=== PATIENT | female | born 1980 | race African-American/Black ===

== ENCOUNTER 2016-12-29 13:47 | Emergency (ER) | payer OTHER ==
[2016-12-29 14:42] LABS: #Eosinphils 0.3 thou/uL (0.0-0.7); #Lymphocytes 1.7 thou/uL (1.20-3.40); #Monocytes 0.3 thou/uL (0.11-0.59); #Neutrophils 4.2 thou/uL (1.40-6.50); %Basophils 0.3 % (0.0-1.0); %Eosinophils 4.3 % (0.0-10.0); %Lymphocytes 26.1 % (21.0-51.0); %Monocytes 5.1 % (0.0-10.0); Hematocrit 39.1 % (36.0-47.0); Mean Platelet Volume 7.5 fL (7.4-10.4); White Blood Cell (WBC) Count 6.6 thou/uL (4.8-10.8)
[2016-12-29 15:07] LABS: ALT (SGPT) 10 U/L (8-55); AST (SGOT) 14 U/L (5-34); Alkaline Phosphatase 72 U/L (40-150); Anion Gap 13 mmol/L (10-20); BUN (Urea Nitrogen) 8 mg/dL (7.0-18.7); Bilirubin, Total 0.3 mg/dL (0.2-1.2); CK (CPK) 72 U/L (29-168); Calc. Creatinine Clearance 0 mL/min (70-130); Calcium 9.4 mg/dL (7.8-10.44); Carbon Dioxide 21 mmol/L (22-29); Chloride 106 mmol/L (98-107); Estimated GFR-MDRD Greater than 90; Globulin 3.9 g/dL (2.4-3.5); Protein, Total 7.4 g/dL (6.0-8.3)
[2016-12-29 15:12] LABS: Troponin I Less than 0.010 ng/mL (< 0.028)
--- NOTE | 2016-12-29 15:18 | RAD ---
CHEST 1 VIEW: Date: 12/29/16 HISTORY: Chest pain. COMPARISON: Chest 1 view dated 11/29/16. FINDINGS: Lungs are slightly hypoinflated. No pneumothorax or effusion. Cardiac silhouette and mediastinal con tour within normal limits. IMPRESSION: No acute intrathoracic abnormality. No significant change. POS: OFF
== END 2016-12-29 16:53 | disposition home or self-care (01) ==
LOC: ERS 13:47
DX: R07.89 Other chest pain (principal); I25.2 Old myocardial infarction; K21.9 Gastro-esophageal reflux disease without esophagitis; G40.909 Epilepsy, unspecified, not intractable, without status epilepticus; D64.9 Anemia, unspecified; F41.9 Anxiety disorder, unspecified; F31.9 Bipolar disorder, unspecified; Z79.899 Other long term (current) drug therapy
CPT/HCPCS: 36415; 71010; 80053; 82550; 82553; 84484; 85025; 93005

== ENCOUNTER 2017-01-11 20:58 | Emergency (ER) | payer OTHER ==
[2017-01-11 21:35] LABS: Bilirubin Negative (Negative); Blood, Urine Moderate (Negative); Glucose, Urine (Dipstick) Negative (Negative); Ketone, Urine Negative (Negative); Nitrite Negative (Negative); Protein, Urine (Dipstick) 30 mg/dL (Neg-Trace)
[2017-01-11 21:37] LABS: Bacteria/HPF 4+ HPF (None Seen); Hyaline Casts/LPF 0-3 HYALINE CAST LPF (0-3 Hyaline); RBC/HPF GREATER THAN 50-TNTC HPF (0-3); Squamous Epithelial 0-3 HPF (0-3)
== END 2017-01-11 23:15 | disposition home or self-care (01) ==
LOC: ERS 20:58
DX: N39.0 Urinary tract infection, site not specified (principal); I25.2 Old myocardial infarction; K21.9 Gastro-esophageal reflux disease without esophagitis; D64.9 Anemia, unspecified; F41.9 Anxiety disorder, unspecified; F31.9 Bipolar disorder, unspecified
CPT/HCPCS: 81003; 81015; 81025; 99283

== ENCOUNTER 2017-03-03 20:08 | Emergency (ER) | payer OTHER ==
[2017-03-03 20:33] LABS: Bilirubin Negative (Negative); Blood, Urine Trace (Negative); Glucose, Urine (Dipstick) Negative (Negative); Ketone, Urine Negative (Negative); Nitrite Negative (Negative); Protein, Urine (Dipstick) Negative (Neg-Trace)
[2017-03-03 20:35] LABS: Bacteria/HPF Rare-Few HPF (None Seen); Hyaline Casts/LPF 0-3 HYALINE CAST LPF (0-3 Hyaline); RBC/HPF 0-3 HPF (0-3); Squamous Epithelial 0-3 HPF (0-3)
[2017-03-03 21:30] LABS: Band 3 % (5-11); Hematocrit 38.8 % (36.0-47.0); Mean Platelet Volume 8.8 fL (7.4-10.4); Neutrophil 73 % (42-75); White Blood Cell (WBC) Count 8.5 thou/uL (4.8-10.8)
[2017-03-03 21:59] LABS: ALT (SGPT) 11 U/L (8-55); AST (SGOT) 20 U/L (5-34); Alkaline Phosphatase 68 U/L (40-150); Anion Gap 13 mmol/L (10-20); BUN (Urea Nitrogen) 8 mg/dL (7.0-18.7); Bilirubin, Total 0.2 mg/dL (0.2-1.2); Calc. Creatinine Clearance 0 mL/min (70-130); Calcium 8.9 mg/dL (7.8-10.44); Carbon Dioxide 19 mmol/L (22-29); Chloride 107 mmol/L (98-107); Estimated GFR-MDRD Greater than 90; Globulin 4.1 g/dL (2.4-3.5); Lipase 13 U/L (8-78); Protein, Total 7.6 g/dL (6.0-8.3)
--- NOTE | 2017-03-03 22:54 | ULT ---
RIGHT UPPER QUADRANT ULTRASOUND 03/03/17 COMPARISON: None. HISTORY: Right upper quadrant pain. TECHNIQUE: Multiplanar younger scale sonographic imaging of the right upper quadrant obtained. FINDINGS: The java grails developer reports a negative Dangelo's sign. Imaged pancreatic parenchyma is unremarkable. The d istal body and tail are obscured by bowel gas. No focal liver lesion or intrahepatic biliary dilatati on is seen. No gallbladder wall thickening or pericholecystic fluid. No gallstones are noted. The common duct walter sures 3 mm, within normal limits. ' IMPRESSION: The right kidney measures 11.9 cm in craniocaudal dimension and demonstrates no stone, hydronephrosis or mass. IMPRESSION: Unremarkable right upper quadrant ultrasound. POS: [facility]
== END 2017-03-03 23:03 | disposition home or self-care (01) ==
LOC: ERS 20:08
DX: R10.11 Right upper quadrant pain (principal); I25.2 Old myocardial infarction; K21.9 Gastro-esophageal reflux disease without esophagitis; G40.909 Epilepsy, unspecified, not intractable, without status epilepticus; D64.9 Anemia, unspecified; F31.9 Bipolar disorder, unspecified; F41.9 Anxiety disorder, unspecified
CPT/HCPCS: 76705; 80053; 81003; 81015; 83690; 85025

== ENCOUNTER 2017-03-11 12:32 | Emergency (ER) | payer OTHER | END 2017-03-11 14:18 | disposition home or self-care (01) | LOC: ERS 12:32 | DX: K02.9 Dental caries, unspecified (principal); I25.2 Old myocardial infarction; K21.9 Gastro-esophageal reflux disease without esophagitis; D64.9 Anemia, unspecified; F41.9 Anxiety disorder, unspecified; F31.9 Bipolar disorder, unspecified; Z79.899 Other long term (current) drug therapy | CPT/HCPCS: 99282 ==

== ENCOUNTER 2017-05-05 19:31 | Emergency (ER) | payer OTHER ==
[2017-05-05 19:49] LABS: Bilirubin Negative (Negative); Blood, Urine Negative (Negative); Clarity Clear (Clear); Glucose, Urine (Dipstick) Negative (Negative); Leukocyte Trace (Negative); Nitrite Negative (Negative); Protein, Urine (Dipstick) Negative (Neg-Trace); Specific Gravity, Urine 1.015 (1.005-1.030); Urobilinogen 0.2 mg/dL (0.2-1.0)
[2017-05-05 19:58] LABS: Bacteria/HPF None Seen HPF (None Seen); Hyaline Casts/LPF 0-3 HYALINE CAST LPF (0-3 Hyaline); RBC/HPF 0-3 HPF (0-3); Squamous Epithelial 0-3 HPF (0-3); WBC/HPF 0-3 HPF (0-3)
== END 2017-05-05 20:10 | disposition home or self-care (01) ==
LOC: SCSER 19:31
DX: S29.012A Strain of muscle and tendon of back wall of thorax, initial encounter (principal); K21.9 Gastro-esophageal reflux disease without esophagitis; F41.9 Anxiety disorder, unspecified; F31.9 Bipolar disorder, unspecified; X58.XXXA Exposure to other specified factors, initial encounter
CPT/HCPCS: 81003; 81015; 99283

== ENCOUNTER 2018-03-23 10:43 | Emergency (ER) | payer OTHER ==
[2018-03-23] MEDS ORDERED: Acetaminophen 500 MG TAB ONE (11:39)
== END 2018-03-23 11:45 | disposition home or self-care (01) ==
LOC: SCSER 10:43
DX: M79.605 Pain in left leg (principal); K21.9 Gastro-esophageal reflux disease without esophagitis; G40.909 Epilepsy, unspecified, not intractable, without status epilepticus; D64.9 Anemia, unspecified; F41.9 Anxiety disorder, unspecified; F31.9 Bipolar disorder, unspecified; I25.2 Old myocardial infarction
CPT/HCPCS: 99283

== ENCOUNTER 2018-05-13 00:19 | Outpatient (CLI) | payer OTHER ==
[2018-05-13 13:33] LABS: Hemoglobin 11.4 g/dL (12.0-16.0); Mean Corpuscular HGB CONC 31.7 g/dL (32.0-36.0); Mean Corpuscular Hemoglobin 24.5 pg (27.0-31.0); Mean Corpuscular Volume 77.2 fL (78.0-98.0); Mean Platelet Volume 8.5 fL (7.4-10.4); Platelet Count 322 thou/uL (130-400); RBC Distribution Width 15.1 % (11.5-14.5); Red Blood Cell (RBC) Count 4.67 mill/uL (4.20-5.40); White Blood Cell (WBC) Count 5.9 thou/uL (4.8-10.8)
[2018-05-13 13:37] LABS: BHCG - Serum Negative (NEGATIVE); Pregs Control Background? CLEAR/WHITE (CLR/WHITE); Pregs Control Bar Appear? YES (CONTROL BAR)
== END 2018-05-13 00:20 | disposition home or self-care (01) ==
LOC: LABBT 00:19
PROVIDERS: ATTEND Student in an Organized Health Care Education/Training Program
DX: Z01.812 Encounter for preprocedural laboratory examination (principal); N92.0 Excessive and frequent menstruation with regular cycle; N80.0 Endometriosis of uterus; D64.9 Anemia, unspecified
CPT/HCPCS: 84703; 85027; 86850; 86900; 86901

== ENCOUNTER 2018-05-13 10:15 | Inpatient (IN) | payer OTHER ==
[2018-05-13 12:16] VITALS: BMI 40.3
[2018-05-14] MEDS ORDERED: CeleCOXIB 100 MG CAP ONE (08:54)
[2018-05-14] MEDS ORDERED: Gabapentin 300 MG CAP ONE (08:54)
[2018-05-14] MEDS ORDERED: Famotidine/PF 20 mg/2ml Vial ONE (08:55)
[2018-05-14] MEDS ORDERED: Bupivacaine HCl 0.5%/Epinephrine 1:200,000/PF 30 ml Vial ONE (10:18)
[2018-05-14] MEDS ORDERED: Fentanyl 250 MCG/5 ML VIAL ONE (10:22)
[2018-05-14] MEDS ORDERED: Ondansetron HCl/PF 4 MG/2 ML Vial IVP PRN (12:36)
[2018-05-14] MEDS ORDERED: Promethazine HCl 25 MG/ML VIAL IM PRN ×2 (12:36→12:41)
[2018-05-14] MEDS ORDERED: Promethazine HCl 25 MG/ML VIAL SLOW IVP PRN (12:36)
[2018-05-14] MEDS ORDERED: Acetaminophen/Codeine 30-300mg Tablet PO PRN ×2 (12:41)
[2018-05-14] MEDS ORDERED: diphenhydrAMINE 25 MG CAP PO PRN (12:41)
[2018-05-14] MEDS ORDERED: Bisacodyl 10 MG SUPP PR PRN (12:41)
[2018-05-14] MEDS ORDERED: Zolpidem Tartrate 5 MG TAB PO PRN (12:41)
[2018-05-14] MEDS ORDERED: Ondansetron PF 4 MG/2 ML Vial IVP PRN (12:41)
[2018-05-14] MEDS ORDERED: Fentanyl 100 MCG/2 ML VIAL ONE (13:36)
[2018-05-14] MEDS ORDERED: Ibuprofen 800 MG TAB PO SCH (14:00)
[2018-05-14] MEDS ORDERED: Rocuronium Bromide 10 MG/ML (10ML VIAL) ONE (15:07)
[2018-05-14] MEDS ORDERED: Ketorolac Tromethamine 30 MG/ML VIAL ONE (15:07)
[2018-05-14] MEDS ORDERED: PROPOFOL 200 MG/20 ML VIAL ONE (15:07)
[2018-05-14] MEDS ORDERED: Ondansetron PF 4 MG/2 ML Vial ONE (15:07)
[2018-05-14] MEDS ORDERED: Lidocaine 1% PF 5 ML VIAL ONE (15:07)
[2018-05-14] MEDS ORDERED: Dexamethasone 20 MG/5 ML VIAL ONE (15:07)
[2018-05-14] MEDS ORDERED: Glycopyrrolate 0.2 MG/ML 5 ML SYRINGE ONE (15:07)
[2018-05-14] MEDS: Fentanyl 100 MCG/2 ML VIAL SLOW IVP PRN ×2 (15:57→19:37)
--- NOTE | 2018-05-14 16:00 | OP ---
DATE OF PROCEDURE: 05/14/2018 PREOPERATIVE DIAGNOSES: 1. Menorrhagia. 2. Dysmenorrhea. 3. Adenomyosis. POSTOPERATIVE DIAGNOSES: 1. Menorrhagia. 2. Dysmenorrhea. 3. Adenomyosis. PROCEDURES PERFORMED: Robotic-assisted total laparoscopic hysterectomy, bilateral salpingectomy, and lysis of adhesions. RETURNED ITEM CLERK SURGEONS: Keo Thompson and Lurdes Moya PA-C. ANESTHESIA: General endotracheal. ESTIMATED BLOOD LOSS: 50 mL. IVF: 800 mL of crystalloid. URINE OUTPUT: 610 mL of clear urine. COMPLICATIONS: None. DRAINS: Puckett catheter. PATHOLOGY: Uterus, cervix, and bilateral fallopian tubes. OPERATIVE INDICATIONS: A 37-year-old, G2, P2 with a prior history of tubal ligation and umbilical mesh, presented with worsening heavy painful periods leading to anemia. She had failed medical management with oral contraceptives and desired definitive management secondary to her continued anemia and heavy gushing bleeding on a monthly cycles. She had an ultrasound that showed a globally enlarged uterus approximately 12-week size, normal adnexa, and endometrial biopsy that was negative. She understood the risks associated with surgery and wished to proceed. DESCRIPTION OF PROCEDURE: The patient was taken to the operating room, where general anesthesia was obtained without difficulty. The patient was prepped and draped in a sterile fashion in the dorsal lithotomy position. A Puckett catheter was placed in the bladder. A periurethral cyst was noted just inferior to the patient's right side of the urethra. This was mobile, however, was unclear whether this was a urethral diverticulum versus benign vaginal cyst; therefore, secondary to the concern of possible urethral diverticulum, the cyst was left alone and the patient will be sent to Urology for further evaluation. The speculum was placed in the vagina, and the anterior lip of the cervix was grasped with a single-tooth tenaculum. The uterus then sounded to 10 cm. It was progressively dilated with Yuniel dilators. The URIEL manipulator was assembled with a 10 cm tip and a 4 cm colpotomizer ring. The tip was inserted into the uterine fundus. The balloon was inflated. The speculum was removed out of the vagina. The colpotomizer ring was advanced, fit snugly around the cervix and the tenaculum was removed off the cervix. The vaginal occluder balloon was also inflated. Nikolai was placed in low lithotomy. Attention was turned to the abdomen. Barger's point entry was chosen for the entry location secondary to the patient's prior umbilical mesh. The midclavicular line approximately 2 fingerbreadths below the rib was identified. This was infiltrated with 0.5% Marcaine with epinephrine. A 5-mm skin incision was made, and the Veress needle was passed into the abdomen, noting an opening pressure of 9 mmHg and pneumoperitoneum was obtained without difficulty. The 5-mm trocar and scope were inserted into the abdomen through this incision optically and at that time, filmy adhesions of the omentum spreading almost all the way across the mid abdomen were noted, especially in the area around the umbilicus. There was no bowel contained in the adhesions. The patient was then slightly airplane to the right side. A clear area in the left lower quadrant was identified, and the left lower quadrant robotic trocar was placed after infiltrating with 0.5% Marcaine with epinephrine under direct visualization. The monopolar scissors were then used to come across these filmy adhesions, dissecting the clear window and cauterizing any vessels for hemostasis, and this was performed for approximately 20 minutes. This allowed the area where the camera port would be inserted to be cleared free away from omental adhesions to allow for visualization of the hysterectomy. Once visualization was improved after taking down the adhesions, the area of the right lower quadrant port was identified. This area was infiltrated with 0.5% Marcaine with epinephrine. An 8-mm skin incision was made. Robotic 8 mm trocar was advanced into the abdomen under direct visualization. The umbilicus was then infiltrated with 0.5% Marcaine with epinephrine. The 12-mm skin incision was made, and the 12-mm trocar was advanced into the abdomen under direct visualization. The camera was removed out of the left upper quadrant port and placed into the umbilical port, and the 5-mm incision was extended to 11 mm to accommodate the volunteer assistant port and an 11-mm port was placed under direct visualization. Steep Trendelenburg was obtained, and the patient was flattened out of the airplane. The robot was then docked. Right robotic arm contained monopolar scissors. Left robotic arm contained a fenestrated bipolar. The uterus was noted to be consistent with about a 12-week size. There were no fibroids or additional masses noted. There were no abnormalities of the fallopian tubes or ovaries. There was small paratubal cyst of Morgagni present bilaterally. There was a staple from the patient's previous mesh present in the vesicouterine peritoneum that was resected with assessment and sent for pathology. The right fallopian tube was then grasped and elevated. The mesosalpinx was sequentially cauterized with the Fenestrated and transected with the scissors until the uterine cornua was met. The fallopian tube was then clamped, cauterized, transected, and removed out of the abdomen. The utero-ovarian ligament was cauterized and transected, and this was carried around the mesovarium, cauterized and transected to ensure hemostasis until the midportion of the round ligament was met. This was clamped with the fenestrated cauterized, transected with the scissors. This opened up the anterior and posterior leaves of the broad ligament. The anterior leaf of the broad ligament was dropped down undermining with fenestrated and dissecting out the retroperitoneum with the push and spread technique with the fenestrated. The posterior leaf of the broad ligament was also dropped down to the level of the uterosacral also undermining with the fenestrated. The vessels were skeletonized laterally incising on cautery with the scissors and also doing blunt dissection in push and spreading technique. The vesicouterine peritoneum was incised over the colpotomizer ring, and the bladder flap was dissected down below the level of the colpotomizer ring mainly with blunt dissection and the back end of the scissors. Attention was then turned to the left side, where the left fallopian tube was grasped and elevated. The mesosalpinx was cauterized and transected from the lateral to medial portion. The medial portion of the fallopian tube was clamped, cauterized, and the fallopian tube was removed out of the abdomen. The utero-ovarian was cauterized x2 with the fenestrated on the left side and transected in the mid portion. This was carried down to the mesovarium that was cauterized and transected into the midportion of the round ligament that was cauterized and transected. The posterior leaf of the broad ligament was then dropped down to the level of the uterosacral ligament, and the retroperitoneum was dissected off the vessels laterally. The anterior leaf of the broad ligament was also dropped down to the level of the bladder flap. The vessels were further skeletonized with blunt dissection with the fenestrated, and the bladder flap was further created scoring over the pubocervical fascia and bluntly dissecting down distally especially laterally to allow for adequate skeletonization of the vessels and to allow the ureter to fall more laterally into the pelvic sidewall. The vessels on the left side were then clamped, cauterized with the fenestrated at the level of the internal cervical os times several with the fenestrated. These vessels were then transected. Attention was turned to the right uterine pedicle, where this was clamped, cauterized, and transected also. The uterus was then sharply anteverted. The posterior colpotomy was made at the level of the colpotomizer ring. This was carried laterally. The fenestrated was flipped underneath the lateral apices and cauterized for additional hemostasis. The cardinal ligament was incised through after incising through the vessels on the right side. Hemostasis was noted. This was carried around anteriorly to perform the anterior colpotomy with the scissors and completed colpotomy with the left lateral side. The uterus was then removed into the vagina. Hemostasis was achieved with the vaginal cuff with fenestrated. The scissors were traded out for the needle dedicated intermodal truck driver, and irrigation was performed of the vaginal cuff. A 2-0 V-Loc suture was then used to close the cuff in a running fashion incorporating the vaginal mucosa and posterior peritoneum in each bite. This was run back for several sutures, and closure was noted to be excellent. At that time, the needle was removed out of the abdomen. Irrigation was again performed of the pelvis. Low pressure check was performed. There was a small area on the right uterine pedicle that was noted to have some oozing, and this was cauterized with fenestrated. Low pressure check was again performed, and hemostasis was noted to be excellent. All instruments were removed out of the abdomen. The robot was undocked, and the umbilical fascia was closed with an 0 Vicryl in a [id number] fashion. The skin was closed with 4-0 Monocryl fashion, and Dermabond was applied. The vaginal cuff was then checked and noted to have excellent hemostasis, and all instruments were removed out of the vagina. The patient tolerated the procedure well. Sponge, lap, and needle counts were correct x2. The patient was taken to recovery room in stable condition. The patient received Ancef 2 g prior to the procedure. Job ID: [id number]
[2018-05-14] MEDS: Ketorolac Tromethamine 30 MG/ML VIAL IVP SCH (19:01)
[2018-05-14] MEDS: Simethicone Chewable 80 MG TAB PO PRN (19:44)
[2018-05-14] MEDS: levETIRAcetam 500 MG TAB PO SCH (21:16)
[2018-05-14] MEDS: Docusate Calcium (SURFAK) 240 MG CAP PO SCH (21:17)
[2018-05-14] MEDS: Gabapentin 300 MG CAP PO SCH (21:17)
[2018-05-15] MEDS: Ketorolac Tromethamine 30 MG/ML VIAL IVP SCH ×2 (02:03→06:20)
[2018-05-15] MEDS: Sodium Chloride 0.9% 1,000 ML IV SCH ×2 (02:04→06:21)
[2018-05-15] MEDS: Ibuprofen 800 MG TAB PO SCH ×3 (06:21→22:31)
[2018-05-15] MEDS ORDERED: HYDROcodone/Acetaminophen 7.5/325 mg Tablet PO PRN (07:52)
--- NOTE | 2018-05-15 07:52 | PDOC.EVN ---
Event Note - Event Note Event Note: POD1 S: c/o pain 8/10, pain meds not helping. Has not yet gotten out of bed or eaten. Denies nausea, feels hungry. O: VSSAF NAD unlabored breathing soft/ND/leah ttp/no guarding or rebound, inc c/d/i No e/c/c/ Labs pending Plan: advance diet ambulate DTV [place] 7.5 for pain, sched ibuprofen Poss home later today if pain controlled.
[2018-05-15 08:26] LABS: Hemoglobin 10.9 g/dL (12.0-16.0); Mean Corpuscular HGB CONC 30.9 g/dL (32.0-36.0); Mean Corpuscular Hemoglobin 23.8 pg (27.0-31.0); Mean Corpuscular Volume 77.2 fL (78.0-98.0); Mean Platelet Volume 8.5 fL (7.4-10.4); Platelet Count 326 thou/uL (130-400); Red Blood Cell (RBC) Count 4.58 mill/uL (4.20-5.40); White Blood Cell (WBC) Count 12.5 thou/uL (4.8-10.8)
[2018-05-15] MEDS ORDERED: Prevnar 13-Val Conj/PF 0.5 ML SYRINGE IM ONE (09:00)
[2018-05-15] MEDS: Docusate Calcium (SURFAK) 240 MG CAP PO SCH ×2 (11:54→22:31)
[2018-05-15] MEDS: HYDROcodone/Acetaminophen 7.5/325 mg Tablet PO PRN ×4 (11:54→22:35)
[2018-05-15] MEDS: levETIRAcetam 500 MG TAB PO SCH ×2 (11:55→22:31)
[2018-05-15] MEDS: Simethicone Chewable 80 MG TAB PO PRN (17:52)
[2018-05-15] MEDS: Gabapentin 300 MG CAP PO SCH (22:31)
[2018-05-16] MEDS: Ibuprofen 800 MG TAB PO SCH (06:05)
[2018-05-16 07:45] VITALS: BP 97/61; TEMP 98.2
--- NOTE | 2018-05-16 07:57 | PDOC.EVN ---
Event Note - Event Note Event Note: POD2 S: Pain better controlled after changing to [place]. +voiding, ambulating, april po O: VSSAF NAD unlabored breathing s/nd/appttp, inc c/d/i No e/c/c/ hgb 10.9 Plan: DC home with pain meds FU 2 weeks
[2018-05-16] MEDS: HYDROcodone/Acetaminophen 7.5/325 mg Tablet PO PRN (08:21)
[2018-05-16] MEDS: Docusate Calcium (SURFAK) 240 MG CAP PO SCH (08:44)
[2018-05-16] MEDS: levETIRAcetam 500 MG TAB PO SCH (08:44)
== END 2018-05-16 10:09 | disposition home or self-care (01) | DRG 742 ==
LOC: SURG A 05-14 08:21 → 3SE 05-14 15:22
PROVIDERS: ADMIT Student in an Organized Health Care Education/Training Program; ATTEND Student in an Organized Health Care Education/Training Program
PROC: 0UT94ZZ Resection of Uterus, Percutaneous Endoscopic Approach (ICD-10-PCS; principal; 2018-05-14)
PROC: 0UT74ZZ Resection of Bilateral Fallopian Tubes, Percutaneous Endoscopic Approach (ICD-10-PCS; 2018-05-14)
PROC: 8E0W4CZ Robotic Assisted Procedure of Trunk Region, Percutaneous Endoscopic Approach (ICD-10-PCS; 2018-05-14)
DX: N92.0 Excessive and frequent menstruation with regular cycle (principal); Z68.41 Body mass index [BMI] 40.0-44.9, adult; N80.0 Endometriosis of uterus; D50.0 Iron deficiency anemia secondary to blood loss (chronic); N36.9 Urethral disorder, unspecified; K66.0 Peritoneal adhesions (postprocedural) (postinfection); N89.8 Other specified noninflammatory disorders of vagina; E66.9 Obesity, unspecified; Z88.5 Allergy status to narcotic agent; Z88.0 Allergy status to penicillin
CPT/HCPCS: 36415; 85027; 88307; J0670; J1100; J1885; J2001; J2405; J2704; J3010; Q9968; S0028

== ENCOUNTER 2018-05-27 21:24 | Inpatient (IN) | payer OTHER ==
[2018-05-27 21:54] LABS: #Basophils 0.1 thou/uL (0.0-0.2); #Eosinphils 0.2 thou/uL (0.0-0.7); #Lymphocytes 2.1 thou/uL (1.20-3.40); #Monocytes 0.6 thou/uL (0.11-0.59); #Neutrophils 6.5 thou/uL (1.40-6.50); %Basophils 0.7 % (0.0-1.0); %Eosinophils 2.1 % (0.0-10.0); %Lymphocytes 22.5 % (21.0-51.0); %Monocytes 5.9 % (0.0-10.0); %Neutrophils 68.9 % (42.0-75.0); Hemoglobin 11.8 g/dL (12.0-16.0); Mean Corpuscular Hemoglobin 23.9 pg (27.0-31.0); Mean Corpuscular Volume 77.2 fL (78.0-98.0); Mean Platelet Volume 8.2 fL (7.4-10.4); Platelet Count 375 thou/uL (130-400); RBC Distribution Width 15.1 % (11.5-14.5); Red Blood Cell (RBC) Count 4.95 mill/uL (4.20-5.40); White Blood Cell (WBC) Count 9.4 thou/uL (4.8-10.8)
[2018-05-27 22:11] LABS: Bilirubin Negative (Negative); Blood, Urine Negative (Negative); Clarity CLEAR (Clear); Glucose, Urine (Dipstick) Negative (Negative); Leukocyte Negative (Negative); Nitrite Negative (Negative); Protein, Urine (Dipstick) Negative (Neg-Trace); Specific Gravity, Urine 1.004 (1.002-1.036); Urobilinogen 0.2 mg/dL (0.2-1.0)
[2018-05-27 22:36] LABS: ALT (SGPT) 10 U/L (8-55); AST (SGOT) 19 U/L (5-34); Albumin 3.5 g/dL (3.5-5.0); Alkaline Phosphatase 75 U/L (40-150); Anion Gap 14 mmol/L (10-20); BUN (Urea Nitrogen) 7 mg/dL (7.0-18.7); Bilirubin, Total Less than 0.2 mg/dL (0.2-1.2); Calc. Creatinine Clearance 0 mL/min (70-130); Calcium 9.4 mg/dL (7.8-10.44); Carbon Dioxide 20 mmol/L (22-29); Chloride 107 mmol/L (98-107); Estimated GFR-MDRD Greater than 90; Globulin 4.1 g/dL (2.4-3.5); Glucose 106 mg/dL (70-105); Lipase 12 U/L (8-78); Protein, Total 7.6 g/dL (6.0-8.3); Sodium 137 mmol/L (136-145)
[2018-05-28] MEDS ORDERED: Ondansetron PF 4 MG/2 ML Vial ONE (01:55)
[2018-05-28 02:32] LABS: Prothrombin Time 13.5 SEC (12.0-14.7)
[2018-05-28 02:33] LABS: PTT 34.4 SEC (22.9-36.1)
[2018-05-28] MEDS ORDERED: Enoxaparin Sodium 60 MG/0.6 ML SYRINGE ONE ×2 (02:58→02:59)
[2018-05-28] MEDS ORDERED: Acetaminophen 325 MG TAB ONE (03:34)
[2018-05-28] MEDS ORDERED: Ketorolac Tromethamine 30 MG/ML VIAL ONE (06:44)
[2018-05-28] MEDS ORDERED: Ondansetron PF 4 MG/2 ML Vial IVP PRN (07:21)
[2018-05-28] MEDS ORDERED: Cepastat Lozenges 1 LOZ PO PRN (07:21)
[2018-05-28] MEDS ORDERED: Loratadine 10 MG TAB PO PRN (07:21)
[2018-05-28] MEDS ORDERED: Sodium Chloride 0.65% Nasal 44 ML BOT EA NARE PRN (07:21)
[2018-05-28] MEDS ORDERED: hydrALAZINE 20 MG/ML VIAL SLOW IVP PRN (07:21)
[2018-05-28] MEDS ORDERED: Zolpidem Tartrate 5 MG TAB PO PRN (07:21)
[2018-05-28] MEDS ORDERED: Artificial Tears 18 DROP/0.9 ML EA EYE PRN (07:21)
[2018-05-28] MEDS ORDERED: Diabetic Tussin 200 MG/10 ML UDCUP PO PRN (07:21)
[2018-05-28] MEDS ORDERED: Ondansetron ODT 4 MG TAB PO PRN (07:21)
[2018-05-28] MEDS ORDERED: Calcium Carbonate 500 MG ChewTAB PO PRN (07:21)
[2018-05-28] MEDS ORDERED: Loperamide HCl 2 MG CAP PO PRN (07:21)
[2018-05-28] MEDS ORDERED: Eucerin (Mineral Oil/Petrolatum,White) 30 gm Jar TOP PRN (07:21)
[2018-05-28] MEDS ORDERED: Bisacodyl 10 MG SUPP PR PRN (07:21)
[2018-05-28] MEDS ORDERED: Bisacodyl 5 MG TAB PO PRN (07:21)
--- NOTE | 2018-05-28 07:55 | ULT ---
ULTRASOUND GALLBLADDER RIGHT UPPER QUADRANT: HISTORY: Abdominal pain. COMPARISON: Gallbladder ultrasound from 2017. FINDINGS: Real-time, younger scale, and color evaluation of the right upper quadrant was performed. The liver is mildly enlarged measuring 18 cm in length. Visualized portions of the pancreas are unremarkable. The gallbladder is contracted. No pericholecystic fluid. No gallbladder wall thickening. Common bile duct measures under 4 mm, normal. The right kidney measures 12.4 x 5 x 5.4 cm with interpolar 1.3 cm cyst. Mild prominence of the righ t renal calyces. IMPRESSION: 1. No evidence of cholecystitis. 2. Mild prominence of the renal calyces without overt dilatation may be physiologic. POS: [facility]
[2018-05-28] MEDS ORDERED: Enoxaparin Sodium 80 MG/0.8 ML SYRINGE SC SCH (09:00)
--- NOTE | 2018-05-28 09:30 | CT ---
PRELIMINARY REPORT/[facility]/EMERGENTY AFTER-HOURS PROCEDURE CT Angiography Chest With Contrast EXAM DATE/TIME: 05/28/2018 1:51 AM CLINICAL HISTORY: 37 years old, female; Signs and symptoms; Dyspnea; Patient HX: 37f presents for the evaluation of ruq abdominal pain that started yesterday. Patient reports she initially believed it was due to gas and took a myriad of otc medications with no relief. Patient noted to be markedly short of breath during the exam. Patient disclosed shortness of breath with pain at the base of her lungs for several days. Recently (2 weeks prior) had a lap hysterectomy. Denies fever and chills. Denies palpitations. Denies chest pain. Denies cough. TECHNIQUE: Axial computed tomographic angiography images of the chest with intravenous contrast using CT angiogr aphy protocol. MIP reconstructed images were created and reviewed. COMPARISON: No relevant prior studies available. FINDINGS: Pulmonary arteries: There are filling defects in segmental and subsegmental branches of the right low er lobe pulmonary artery. Aorta: Normal. No aortic aneurysm. No aortic dissection. Lungs: Small airspace opacity in the right lower lobe in territory of pulmonary emboli. Pleural space: Normal. No pneumothorax. No pleural effusion. Heart: Normal. No cardiomegaly. No pericardial effusion. Lymph nodes: Unremarkable. No enlarged lymph nodes. Bones/joints: Unremarkable. No acute fracture. Soft tissues: Unremarkable. IMPRESSION: 1. Acute pulmonary embolism involving branches of the right lower lobe pulmonary artery. 2. Associated small right lower lobe consolidation likely representing early pulmonary infarct. THIS REPORT CONTAINS FINDINGS THAT MAY BE CRITICAL TO PATIENT CARE. The findings were verbally commun icated via telephone conference with Wenceslao Donis at 2:14 AM TRACK TEMPLATE MAKER on 05/28/2018. The findings were ackno wledged and understood. Thank you for allowing us to participate in the care of your patient. Dictated and Authenticated by: Rsolyn Jones MD 05/28/2018 2:22 AM Central Time ([place] & [place]) FINAL REPORT CT ANGIOGRAM OF THE CHEST WITH CONTRAST: HISTORY: Abdominal pain. COMPARISON: CT angiogram chest 10/17/2016. FINDINGS: CT angiogram of the chest performed after the intravenous administration of contrast. Three-D render ing was provided. Findings and impression are concordant with the preliminary report. POS: [facility]
[2018-05-28] MEDS ORDERED: ISOVUE-370 76%-LOCM 1 ML ONE (09:58)
--- NOTE | 2018-05-28 10:28 | HP ---
PRIMARY CARE PHYSICIAN: [facility] Call admission. REASON FOR ADMISSION: Pulmonary embolism. HISTORY OF PRESENT ILLNESS: A 37-year-old female who has underlying morbid obesity, who initially presented to emergency room with complaint of abdominal pain. The patient kept thinking that she was having gas pain and she was trying [id number] medication with Gas-X and other antacid without any significant improvement. She was having right upper quadrant pain, which was pleuritic in nature associated with shortness of breath. She was also having intermittent cough. This patient recently underwent a laparoscopic hysterectomy 2 weeks before. Postoperatively, she was doing well, but this symptoms started after discharge from the hospital. All these symptoms have been going on for last couple of days. She denies any fever or chills. She denies any UTI symptoms. She denies any constipation, diarrhea, melena, or hematochezia. In the emergency room, the patient had CT angiography of her chest, which showed acute pulmonary embolism involving right lower lobe pulmonary artery. There was also associated right lower lobe consolidation, which was suspected for infarct. The patient never had DVT or PE in the past. She denies any lower extremity edema or calf tenderness. The patient reports that after surgery she was ambulatory at home. She does not have any family history of blood clot disorder. REVIEW OF SYSTEMS: CONSTITUTIONAL: Negative for weight loss or gain, ability to conduct usual activities. SKIN: Negative for rash, itching. EYES: Negative for double vision, pain. ENT/MOUTH: Negative for nose bleeding, neck stiffness, pain, tenderness. CARDIOVASCULAR: Negative for palpitations, dyspnea on exertion, orthopnea. RESPIRATORY: Negative for shortness of breath, wheezing, cough, hemoptysis, fever or night sweats. GASTROINTESTINAL: Negative for poor appetite, abdominal pain, heartburn, nausea , vomiting, constipation, or diarrhea. GENITOURINARY: Negative for urgency, frequency, dysuria, nocturia. MUSCULOSKELETAL: Negative for pain, swelling. NEUROLOGIC/PSYCHIATRIC: Negative for anxiety, depression. ALLERGY/IMMUNOLOGIC: Negative for skin rash, bleeding tendency. Please see my HPI for pertinent positive and negative. All other review of systems reviewed and negative except as mentioned in HPI. PAST MEDICAL HISTORY: 1. Morbid obesity. 2. Gastroesophageal reflux disease. 3. Epilepsy. 4. Colon polyp. 5. Chronic anemia. PAST SURGICAL HISTORY: 1. Colonoscopy. 2. Tonsillectomy. 3. Hernia repair. 4. Tubal ligation. 5. Recent hysterectomy on May 14, 2018. PAST PSYCHIATRIC HISTORY: 1. Anxiety. 2. Depression. 3. Bipolar disorder. SOCIAL HISTORY: The patient lives at home with family. No history of tobacco, alcohol, or illicit drug abuse. She has 3 children. FAMILY HISTORY: No family history of coronary artery disease, stroke, or cancer. EMERGENCY ROOM COURSE: The patient was given Toradol 30 mg IV fluid, Tylenol, Lovenox 1 mg/kg and Zofran. CURRENT HOME MEDICATIONS: The patient was discharged from hospital on: 1. Keppra 500 mg p.o. b.i.d. 2. [place] p.r.n. ALLERGY: Penicillin, Morphine and tramadol PHYSICAL EXAMINATION: VITAL SIGNS: Currently, blood pressure 91/54, pulse 83, respiratory rate 18, temperature 98.2, saturation 99% on room air, weight 122 kg. GENERAL: The patient is currently alert, awake, no obvious acute distress. HEENT: Head; normocephalic, atraumatic. Eyes; pupils round, reactive to light. Extraocular muscle intact. ENT; oropharynx within normal limits. Moist mucous membranes. No oral lesion. No pharyngeal erythema. No exudate. NECK: Supple. No JVD. No thyromegaly. No carotid bruit. No jugular venous distention. LUNGS: Clear to auscultation without any rhonchi or rales. CARDIAC: S1, S2 regular. No murmur elicited. No gallop. No rub. ABDOMEN: Obesity present. Bowel sounds present. Surgical site is clean and healthy. The patient right upper quadrant pain is related with pleurisy. No Dangelo sign. No guarding. No rigidity. No rebound. No organomegaly. No mass. BACK: Examination unremarkable. No CVA tenderness. EXTREMITIES: Upper extremities, passive movement of all joints are normal. Lower extremity, no edema. Good distal pulsation. SKIN: No skin rash. HEMATOLOGICAL: No lymphadenopathy. PSYCHIATRIC: Normal affect. SIGNIFICANT LABORATORY DATA: EKG showing normal sinus rhythm, within normal limit. CT angiography showing acute pulmonary embolism involving right lower lobe pulmonary artery associated with right lower lobe pulmonary infection. Abdominal ultrasound right upper quadrant negative for any acute process. CBC: WBC 9.4, hemoglobin 11.8, platelet 375. INR 1.0. D-dimer 2.23. Sodium 137, potassium 4.0, chloride 107, carbon dioxide 20, BUN 7, creatinine 0.82, glucose 106, calcium 9.4. LFT; AST 19, ALT 10, alkaline phosphatase 75, albumin 3.5, lipase 12. Cardiac enzyme negative. Urinalysis normal. EKG showing normal sinus rhythm, within normal limits. ASSESSMENT AND PLAN: 1. Acute pulmonary embolism provoked after surgery. The patient is hypercoagulable after surgery and that most likely precipitated her pulmonary embolism. The patient was already given Lovenox 1 mg/kg in the emergency room. We will obtain ultrasound of bilateral lower extremity to rule out deep venous thrombosis. We will check H and H, creatinine, and platelets every other day. 2. Epilepsy. We will continue Keppra 500 mg p.o. b.i.d. 3. Morbid obesity. Dietary education given. Weight loss education given. Healthy lifestyle measure discussed with the patient. 4. Chronic microcytic anemia. We will check stool for guaiac and we will continue with ferrous sulfate 325 mg p.o. daily. We will monitor H and H while in hospital. 5. Deep venous thrombosis prophylaxis. The patient is already on full dose of Lovenox therapy for pulmonary embolism. 6. Gastrointestinal prophylaxis, Pepcid 20 mg p.o. b.i.d. CODE STATUS: The patient is full code. The patient does not have any surrogate decision maker. DISPOSITION PLAN: Based on clinical course, we are expecting the patient's stay in hospital more than 2 midnights. I had lengthy discussion with the patient about long-term anticoagulation therapy for at least 4-6 months either with warfarin or newer oral anticoagulant therapy. Risk and benefit of Lovenox, warfarin and newer anticoagulant therapy discussed with the patient. The patient will make decision about discharge medication for anticoagulation by tomorrow. Job ID: [id number] [facility]
--- NOTE | 2018-05-28 10:36 | ULT ---
ULTRASOUND WITH DOPPLER DUPLEX VENOUS LOWER EXTREMITY BILATERAL: HISTORY: A 37-year-old female with pulmonary thromboembolism. TECHNIQUE: Color flow Doppler, spectral waveform analysis of pulsed Doppler, and younger-scale imaging with nayeli carlos and augmentation, were used to evaluate the bilateral common femoral, femoral, popliteal, fat pressroom worker ior tibial, and superficial femoral, veins; and the proximal portions of the profunda femoral and gre ater saphenous, veins. FINDINGS: There is normal compressibility, demonstration of blood flow by color Doppler and pulsed Doppler, and response to augmentation, in all interrogated veins. IMPRESSION: Negative. No deep vein thrombosis in the bilateral lower extremity. jn[] POS: [facility]
[2018-05-28] MEDS ORDERED: Famotidine 20 MG TAB ONE (11:55)
[2018-05-28] MEDS: Famotidine 20 MG TAB PO SCH ×2 (12:04→20:43)
[2018-05-28] MEDS: levETIRAcetam 500 MG TAB PO SCH ×2 (12:04→20:43)
[2018-05-28 15:53] VITALS: BMI 40.1
[2018-05-28] MEDS: Enoxaparin Sodium 120 MG/0.8 ML SYRINGE SC SCH (20:43)
[2018-05-28] MEDS ORDERED: HYDROcodone/Acetaminophen 5/325 mg Tablet PO PRN (23:27)
[2018-05-28] MEDS: HYDROcodone/Acetaminophen 5/325 mg Tablet PO PRN (23:43)
[2018-05-29 04:58] LABS: #Basophils 0.1 thou/uL (0.0-0.2); #Eosinphils 0.3 thou/uL (0.0-0.7); #Lymphocytes 2.4 thou/uL (1.20-3.40); #Monocytes 0.6 thou/uL (0.11-0.59); #Neutrophils 4.6 thou/uL (1.40-6.50); %Eosinophils 3.2 % (0.0-10.0); %Lymphocytes 30.7 % (21.0-51.0); %Monocytes 7.3 % (0.0-10.0); %Neutrophils 57.8 % (42.0-75.0); Hemoglobin 10.4 g/dL (12.0-16.0); Mean Corpuscular HGB CONC 31.1 g/dL (32.0-36.0); Mean Corpuscular Hemoglobin 24.1 pg (27.0-31.0); Mean Corpuscular Volume 77.3 fL (78.0-98.0); Mean Platelet Volume 8.2 fL (7.4-10.4); Platelet Count 343 thou/uL (130-400); Red Blood Cell (RBC) Count 4.33 mill/uL (4.20-5.40); White Blood Cell (WBC) Count 7.9 thou/uL (4.8-10.8)
[2018-05-29 05:04] LABS: INR-International Normal Ratio 1.1; Prothrombin Time 13.8 SEC (12.0-14.7)
[2018-05-29 05:20] LABS: Anion Gap 9 mmol/L (10-20); BUN (Urea Nitrogen) 9 mg/dL (7.0-18.7); Calc. Creatinine Clearance 184 mL/min (70-130); Calcium 9.1 mg/dL (7.8-10.44); Carbon Dioxide 25 mmol/L (22-29); Chloride 107 mmol/L (98-107); Estimated GFR-MDRD Greater than 90; Glucose 97 mg/dL (70-105); Sodium 137 mmol/L (136-145)
[2018-05-29] MEDS: Ferrous Sulfate 325 MG TAB PO SCH (09:01)
[2018-05-29] MEDS: levETIRAcetam 500 MG TAB PO SCH ×2 (09:02→20:06)
[2018-05-29] MEDS: Enoxaparin Sodium 120 MG/0.8 ML SYRINGE SC SCH ×2 (09:02→20:07)
[2018-05-29] MEDS: Famotidine 20 MG TAB PO SCH ×2 (09:02→20:06)
--- NOTE | 2018-05-29 12:49 | CON ---
DATE OF CONSULTATION: 05/29/2018 CONSULTING PHYSICIAN: Dr. Lang. REASON FOR CONSULTATION: Pulmonary embolism. HISTORY OF PRESENT ILLNESS: Ms. Shukla is a pleasant 37-year-old female, who came to the emergency room yesterday with right-sided chest pain that has been present since Sunday of last week. She had been taking Gas-X, because she thought she was having abdominal bloating. The Gas-X did not resolve her symptoms. In the emergency room, she had a CT pulmonary angiogram, which demonstrated what looks to me like a solitary right lower lobe pulmonary embolism. She had her legs scanned and that was negative. She recently had a hysterectomy for menorrhagia. She tells me that she is still having some hematuria, but that apparently has not been checked out. At the current time, she is taking Lovenox. PAST MEDICAL HISTORY: 1. Menorrhagia. 2. Obesity. 3. Gastroesophageal reflux. 4. Epilepsy. 5. Colon polyps. 6. Anemia due to blood loss. PAST SURGICAL HISTORY: 1. Colonoscopy. 2. Tonsillectomy. 3. Hernia repair. 4. Tubal ligation. 5. Hysterectomy in April 2018. PAST PSYCHIATRIC HISTORY: Remarkable for anxiety, depression, and bipolar disorder. SOCIAL HISTORY: The patient stays at home with her 3 children. Does not smoke. Does not drink alcohol. Does not use illicit drugs. She lives in [place]. FAMILY MEDICAL HISTORY: Unremarkable for pulmonary embolism. CURRENT OUTPATIENT MEDICATIONS: Keppra 500 mg b.i.d. and [place] as needed. ALLERGIES: PENICILLIN, MORPHINE, AND TRAMADOL. REVIEW OF SYSTEMS: A 12-point review of systems is otherwise negative. PHYSICAL EXAMINATION: VITAL SIGNS: Temperature 97.5, pulse 72, respirations 16, O2 saturation 100%, blood pressure 109/55. GENERAL: She is awake and alert, in no distress. HEENT: Pupils react. Sclerae icteric. Oropharynx clear. NECK: Without adenopathy JVD or bruits. LUNGS: Clear to auscultation without wheezing rhonchi. CARDIAC: S1-S2 regular without murmur. ABDOMEN: Soft, obese, nontender, and nondistended. EXTREMITIES: No clubbing, cyanosis, or edema. NEUROLOGIC: Nonfocal. LABORATORY DATA: Her original urinalysis at the time of admission showed no blood. Sodium 137, potassium 4, BUN 9, creatinine 0.8, and glucose 97. INR 1.1. White blood cell count 7.9, hematocrit 33.5, and platelet count 343. I reviewed the CT pulmonary angiogram personally. ASSESSMENT: 1. Pulmonary embolism. 2. Recent hysterectomy. 3. Possible hematuria. PLAN: 1. Check urine to see, if she is having hematuria. If she is then she will need urology consultation to clear her for further anticoagulation. 2. Once she is cleared for anticoagulation, I would recommend switching her to either Eliquis or Xarelto. She needs to be on this for 6 months duration. 3. 4. Thank you for the referral. Job ID: [id number]
[2018-05-29] MEDS: Acetaminophen 325 MG TAB PO PRN ×2 (13:25→18:47)
[2018-05-29 14:52] LABS: Bilirubin Negative (Negative); Blood, Urine Moderate (Negative); Clarity CLEAR (Clear); Glucose, Urine (Dipstick) Negative (Negative); Leukocyte Trace (Negative); Nitrite Negative (Negative); Protein, Urine (Dipstick) Negative (Neg-Trace)
[2018-05-29 14:54] LABS: Bacteria/HPF None Seen HPF (None Seen); Hyaline Casts/LPF 0-3 HYALINE CAST LPF (0-3 Hyaline); Pathc Cast-AUWi Flag 0.43 (0-2.49); Squamous Epithelial 0-3 HPF (0-3); WBC/HPF 0-3 HPF (0-3)
[2018-05-29 14:55] LABS: Urine Culture Reflex Yes Yes
--- NOTE | 2018-05-29 21:32 | PDOC.PN ---
- Subjective Encounter Start Date: 05/29/18 Encounter Start Time: 11:00 Patient seen and examined for PE. Rt sided pleuritic CP. Dark urine. No other complaints. No overnight events - Objective Resuscitation Status - Order Detail: 05/28/18 07:18 Resuscitation Status Routine Resuscitation Status: FULL: Full Resuscitation MAR Reviewed: Yes Vital Signs & Weight: Vital Signs (12 hours) Temp Pulse Resp BP Pulse Ox 05/29/18 19:12 97.9 F 80 20 98/55 L 99 05/29/18 15:46 98 F 74 16 101/63 99 05/29/18 13:04 97.5 F L 80 18 95/60 100 Weight Weight 272 lb I&O: 05/28/18 05/29/18 05/30/18 06:59 06:59 06:59 Intake Total 480 850 Output Total 350 780 Balance 130 70 Result Diagrams: 05/30/18 06:03 05/30/18 06:03 EKG Reviewed by me: Yes (Tele SR) Phys Exam - Physical Examination Constitutional: NAD Respiratory: no wheezing, no rhonchi Cardiovascular: RRR, no rub Gastrointestinal: soft, positive bowel sounds Musculoskeletal: no edema Dx/Plan - Plan 1. PE with ?pulmonary infarct 2. Recent Hysterectomy 3. Morbid obesity BMI 40.2 4. ?Hematuria 5. 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 negative: Cough, Dry, Shortness of Breath, Hemoptysis, Sputum, Wheezing Cardiovascular: negative: chest pain, palpitations, orthopnea, paroxysmal nocturnal dyspnea, edema, light headedness, other - Medications/Allergies Allergies/Adverse Reactions: Allergies Allergy/AdvReac Type Severity Reaction Status Date / Time morphine Allergy Verified 05/13/18 12:16 Penicillins Allergy Verified 05/13/18 12:16 tramadol Allergy Verified 05/13/18 12:16 Medications: Current Medications Acetaminophen (Tylenol) 650 mg PO Q4H PRN PRN Reason: Headache/Fever/Mild Pain (1-3) Last Admin: 05/29/18 18:47 Dose: 650 mg Hydrocodone Bitart/Acetaminophen ([place] 5/325) 1 tab PO Q4H PRN PRN Reason: Moderate Pain (4-6) Hydrocodone Bitart/Acetaminophen ([place] 5/325) 2 tab PO Q4H PRN PRN Reason: Severe Pain (7-10) Last Admin: 05/28/18 23:43 Dose: 2 tab Artificial Tears (Tears Naturale) 2 drop EA EYE PRN PRN PRN Reason: Dry Eyes Bisacodyl (Dulcolax) 10 mg PO DAILYPRN PRN PRN Reason: Constipation Bisacodyl (Dulcolax) 10 mg ID DAILYPRN PRN PRN Reason: Constipation Calcium Carbonate (Tums) 1,000 mg PO Q4H PRN PRN Reason: Heartburn or Indigestion Enoxaparin Sodium (Lovenox) 120 mg SC 0900,2100 [facility] Last Admin: 05/29/18 20:07 Dose: 120 mg Famotidine (Pepcid) 20 mg PO BID [facility] Last Admin: 05/29/18 20:06 Dose: 20 mg Ferrous Sulfate (Feosol) 325 mg PO [facility] Last Admin: 05/29/18 09:01 Dose: 325 mg Guaifenesin (Robitussin Sf) 200 mg PO Q4H PRN PRN Reason: Cough Hydralazine HCl (Apresoline) 10 mg SLOW IVP Q4H PRN PRN Reason: SBP > 180 and HR < 70 Levetiracetam (Keppra) 500 mg PO BID [facility] Last Admin: 05/29/18 20:06 Dose: 500 mg Loperamide HCl (Imodium) 2 mg PO PRN PRN PRN Reason: Diarrhea/Loose Stools Loratadine (Claritin) 10 mg PO DAILYPRN PRN PRN Reason: Sinus Symptoms Mineral Oil/White Petrolatum (Eucerin Cream) 0 gm TOP BIDPRN PRN PRN Reason: Dry Skin Ondansetron HCl (Zofran Odt) 4 mg PO Q6H PRN PRN Reason: Nausea/Vomiting Ondansetron HCl (Zofran) 4 mg IVP Q6H PRN PRN Reason: Nausea/Vomiting Last Admin: 05/28/18 17:24 Dose: 4 mg Senna/Docusate Sodium (Senokot S) 2 tab PO BID PRN PRN Reason: Constipation Sodium Chloride ([place] Nasal [place] 0.65%) 0 ml EA NARE QIDPRN PRN PRN Reason: Nasal Congestion Throat Lozenges (Cepastat Lozenges) 1 maggie PO Q2H PRN PRN Reason: Sore Throat Zolpidem Tartrate (Ambien) 5 mg PO HSPRN PRN PRN Reason: Insomnia
[2018-05-29] MEDS ORDERED: ALPRAZolam 0.25 MG TAB PO SCH (21:45)
[2018-05-30] MEDS: Acetaminophen 325 MG TAB PO PRN (05:54)
[2018-05-30 06:35] LABS: Hemoglobin 10.9 g/dL (12.0-16.0); Platelet Count 342 thou/uL (130-400)
[2018-05-30 06:37] LABS: INR-International Normal Ratio 1.1
[2018-05-30 06:56] LABS: CK (CPK) 38 U/L (29-168); Calc. Creatinine Clearance 196 mL/min (70-130); Estimated GFR-MDRD Greater than 90
[2018-05-30] MEDS: Enoxaparin Sodium 120 MG/0.8 ML SYRINGE SC SCH ×2 (08:36→20:24)
[2018-05-30] MEDS: levETIRAcetam 500 MG TAB PO SCH ×2 (08:38→20:24)
[2018-05-30] MEDS: Famotidine 20 MG TAB PO SCH ×2 (08:39→20:24)
[2018-05-30] MEDS: Ferrous Sulfate 325 MG TAB PO SCH (08:39)
--- NOTE | 2018-05-30 09:36 | PRG ---
DATE OF SERVICE: 05/30/2018 SUBJECTIVE: The patient appears to be doing okay. She is still having some hematuria that was confirmed on the urinalysis. OBJECTIVE: VITAL SIGNS: Temperature is 98.2, pulse 78, respirations 18, O2 saturation 100%, and blood pressure 100/50. HEENT: Unremarkable. NECK: No JVD. CHEST: Clear. CARDIAC: S1 and S2, regular. ABDOMEN: Soft. EXTREMITIES: No edema. LABORATORY DATA: Hematocrit 35.6, platelet count 342. Sodium 137, potassium 4, chloride 107, CO2 of 25, BUN 9, creatinine 0.8, and glucose 97. ASSESSMENT: 1. Pulmonary embolism. 2. Question of pulmonary infarction. 3. Hematuria versus blood contamination urine from previous surgery. RECOMMENDATIONS: Recommend AUTOMOBILE SERVICE ADVISOR and/or Urology evaluation before starting her on oral anticoagulation therapy. Once she is cleared for anticoagulation, she will need six months of treatment. Job ID: [id number]
[2018-05-30 10:48] LABS: Iron 26 ug/dL (50-170); Iron Binding Capacity, Total 218 mcg/dL (265-497)
[2018-05-30] MEDS: HYDROcodone/Acetaminophen 5/325 mg Tablet PO PRN (20:30)
[2018-05-30] MEDS: Senokot S 8.6-50 MG TAB PO PRN (20:31)
--- NOTE | 2018-05-30 23:05 | PDOC.PN ---
- Subjective Encounter Start Date: 05/30/18 Encounter Start Time: 11:00 Patient seen and examined for PE. Hematuria persist. No new complaints. No overnight events - Objective Resuscitation Status - Order Detail: 05/28/18 07:18 Resuscitation Status Routine Resuscitation Status: FULL: Full Resuscitation MAR Reviewed: Yes Vital Signs & Weight: Vital Signs (12 hours) Temp Pulse Resp BP Pulse Ox 05/30/18 20:22 98.1 F 75 16 118/66 99 05/30/18 13:58 98.1 F 76 18 104/60 97 Weight Weight 272 lb I&O: 05/29/18 05/30/18 05/31/18 06:59 06:59 06:59 Intake Total 480 850 480 Output Total 350 780 Balance 130 70 480 Result Diagrams: 05/30/18 06:03 05/30/18 06:03 EKG Reviewed by me: Yes (Tele SR) Phys Exam - Physical Examination Constitutional: NAD Respiratory: no wheezing, no rhonchi Cardiovascular: RRR, no rub Gastrointestinal: soft, non-tender, positive bowel sounds Musculoskeletal: no edema Dx/Plan - Plan 1. PE with ?pulmonary infarct - on Lovenox 2. Recent Hysterectomy 3. Morbid obesity BMI 40.2 4. Hematuria ?etio 5. Chronic anemia PLAN: Consult Graphotype Operator Cont Lovenox Patient understands the risk associated with anticoag. HH in AM Review of Systems - Review of Systems Cardiovascular: negative: chest pain, palpitations, orthopnea, paroxysmal nocturnal dyspnea, edema, light headedness, other Gastrointestinal: negative: Nausea, Vomiting, Abdominal Pain, Diarrhea, Constipation, Melena, Hematochezia, Other - Medications/Allergies Allergies/Adverse Reactions: Allergies Allergy/AdvReac Type Severity Reaction Status Date / Time morphine Allergy Verified 05/13/18 12:16 Penicillins Allergy Verified 05/13/18 12:16 tramadol Allergy Verified 05/13/18 12:16 Medications: Current Medications Acetaminophen (Tylenol) 650 mg PO Q4H PRN PRN Reason: Headache/Fever/Mild Pain (1-3) Last Admin: 05/30/18 05:54 Dose: 650 mg Hydrocodone Bitart/Acetaminophen ([place] 5/325) 1 tab PO Q4H PRN PRN Reason: Moderate Pain (4-6) Last Admin: 05/30/18 08:37 Dose: 1 tab Hydrocodone Bitart/Acetaminophen ([place] 5/325) 2 tab PO Q4H PRN PRN Reason: Severe Pain (7-10) Last Admin: 05/30/18 20:30 Dose: 2 tab Artificial Tears (Tears Naturale) 2 drop EA EYE PRN PRN PRN Reason: Dry Eyes Bisacodyl (Dulcolax) 10 mg PO DAILYPRN PRN PRN Reason: Constipation Bisacodyl (Dulcolax) 10 mg [place] DAILYPRN PRN PRN Reason: Constipation Calcium Carbonate (Tums) 1,000 mg PO Q4H PRN PRN Reason: Heartburn or Indigestion Enoxaparin Sodium (Lovenox) 120 mg SC 0900,2100 [facility] Last Admin: 05/30/18 20:24 Dose: 120 mg Famotidine (Pepcid) 20 mg PO BID [facility] Last Admin: 05/30/18 20:24 Dose: 20 mg Ferrous Sulfate (Feosol) 325 mg PO [facility] Last Admin: 05/30/18 08:39 Dose: 325 mg Guaifenesin (Robitussin Sf) 200 mg PO Q4H PRN PRN Reason: Cough Hydralazine HCl (Apresoline) 10 mg SLOW IVP Q4H PRN PRN Reason: SBP > 180 and HR < 70 Levetiracetam (Keppra) 500 mg PO BID [facility] Last Admin: 05/30/18 20:24 Dose: 500 mg Loperamide HCl (Imodium) 2 mg PO PRN PRN PRN Reason: Diarrhea/Loose Stools Loratadine (Claritin) 10 mg PO DAILYPRN PRN PRN Reason: Sinus Symptoms Mineral Oil/White Petrolatum (Eucerin Cream) 0 gm TOP BIDPRN PRN PRN Reason: Dry Skin Ondansetron HCl (Zofran Odt) 4 mg PO Q6H PRN PRN Reason: Nausea/Vomiting Last Admin: 05/30/18 21:52 Dose: 4 mg Ondansetron HCl (Zofran) 4 mg IVP Q6H PRN PRN Reason: Nausea/Vomiting Last Admin: 05/28/18 17:24 Dose: 4 mg Senna/Docusate Sodium (Senokot S) 2 tab PO BID PRN PRN Reason: Constipation Last Admin: 05/30/18 20:31 Dose: 2 tab Sodium Chloride ([place] Nasal [place] 0.65%) 0 ml EA NARE QIDPRN PRN PRN Reason: Nasal Congestion Throat Lozenges (Cepastat Lozenges) 1 maggie PO Q2H PRN PRN Reason: Sore Throat Zolpidem Tartrate (Ambien) 5 mg PO HSPRN PRN PRN Reason: Insomnia
[2018-05-31 04:39] VITALS: TEMP 97.9
--- NOTE | 2018-05-31 05:30 | CON ---
DATE OF CONSULTATION: 05/30/2018 CHIEF COMPLAINT: Hematuria in a postsurgical setting and full anticoagulation. HISTORY OF PRESENT ILLNESS: The patient is a 37-year-old female who is about 2 weeks postop status post laparoscopic hysterectomy, who presented to the emergency room for right upper quadrant chest pain, pleuritic in nature with associated shortness of breath and cough, at which time she was diagnosed with pulmonary embolism and was admitted to the hospital for treatment. The patient was placed on full anticoagulation and shortly thereafter was noted to have hematuria. Given the proximity of her surgery, PARTY PLAN SALES CONSULTANT was consulted. After discussion with the patient and timing of this bleeding, the patient reported prior to noticing blood in the urine that she noticed that when she wiped, she had bright red blood on her toilet paper. The patient reports recovery up to this point, other than the chief complaint, routine. The patient denies fever. Denies rash. Denies vision problems. Denies nose bleeds. Denies palpitations. Denies poor appetite or abdominal pain, constipation, or diarrhea. On review of collection of the urinalysis, the patient did confirm that it was a clean-catch urine where she has just voided into a cup. PAST MEDICAL HISTORY: Significant for morbid obesity, gastroesophageal reflux disease, epilepsy, colon polyps, and chronic anemia. PAST SURGICAL HISTORY: Colonoscopy, tonsillectomy, hernia repair, tubal ligation, and recent hysterectomy on 05/14/2018. PSYCHIATRIC HISTORY: Anxiety, depression, and bipolar disorder. SOCIAL HISTORY: The patient denies drug, alcohol, or tobacco use and has 3 children. ALLERGIES: PENICILLIN, MORPHINE, AND TRAMADOL. MEDICATIONS: The patient was placed on Lovenox 1 mg/kg, Zofran, Tylenol, and IV Toradol for pain control in the emergency room. Hydrocodone p.r.n. for pain, Keppra 500 mg p.o. b.i.d. for seizure, and routine medications for p.r.n. PHYSICAL EXAMINATION: VITAL SIGNS: Blood pressure 104/60, temperature 98.1, pulse is 76, respiratory rate 18, and saturating 97% on room air. GENERAL: She appears to be in no acute distress. She is alert, oriented, cooperative, pleasant to interact with. HEAD: Normocephalic, atraumatic. The patient was not in any acute distress. : She was taken to the ANIMAL CHIROPRACTOR exam room for evaluation the patient on evaluation of her perineum and vulva, she was without masses, lesions, or erythema. However, on review of her vestibular region, she was noted to have bleeding from her introitus and scant bleeding that was present throughout her vestibular region including around the urethra. On speculum exam, the patient was noted to have scant blood in the vaginal canal with no visible granulation tissue at time of inspection. On digital exam, a cuff was intact. ASSESSMENT AND PLAN: The patient is a 37-year-old female who is approximately 2 weeks postop for total laparoscopic hysterectomy, who has now been diagnosed with pulmonary embolism and is on full coagulation. The hematuria that was seen is likely from this scant vaginal bleeding that she has been experiencing since being placed on anticoagulation. Given the scant nature and the overall good healing of her vaginal cuff, this should not interfere with treatment for her pulmonary embolism as the bleeding should resolve as healing continues and should be self-limited. We would recommend that treatment for anticoagulation be continued as recommended by the primary team. Of note, the patient's primary PARTY PLAN SALES CONSULTANT, Dr. Pop has been notified, has come to see Ms. Shukla. Recommendations were communicate to Dr. Lang by phone. Job ID: [id number] MTDD
[2018-05-31 07:30] LABS: Hemoglobin 10.9 g/dL (12.0-16.0); Platelet Count 333 thou/uL (130-400)
[2018-05-31 07:41] VITALS: BP 100/50
--- NOTE | 2018-05-31 09:12 | PRG ---
DATE OF SERVICE: 05/31/2018 SUBJECTIVE: The patient is doing well. Still has some shortness of breath with ambulation. OBJECTIVE: VITAL SIGNS: On exam, temperature 97.9, pulse 70, respirations 16, O2 saturations 99%, and blood pressure 100/50. HEENT: Unremarkable. NECK: No adenopathy, JVD, or bruits. LUNGS: Clear. CARDIAC: S1 and S2, regular. ABDOMEN: Soft. EXTREMITIES: No edema. LABORATORY DATA: Hematocrit is 35.2, platelet count 333. ASSESSMENT: 1. Pulmonary embolism. 2. Bleeding, thought secondary to recent surgery and not a contraindication to continue with anticoagulation. RECOMMENDATIONS: I would recommend switching her to Eliquis or Xarelto if her Medicaid will pay for that. If not, she will need to be on Coumadin. If she is placed on novel anticoagulants, then she is safe to go home. Of course, if Coumadin is needed, then she will need to stay until her INR is therapeutic. There are no further Pulmonary recommendations at this time. Job ID: [id number]
[2018-05-31] MEDS: Famotidine 20 MG TAB PO SCH (09:43)
[2018-05-31] MEDS: levETIRAcetam 500 MG TAB PO SCH (09:43)
[2018-05-31] MEDS: Senokot S 8.6-50 MG TAB PO PRN (09:43)
[2018-05-31] MEDS: Ferrous Sulfate 325 MG TAB PO SCH (09:43)
[2018-05-31] MEDS ORDERED: Apixaban 5 MG TAB PO SCH (10:15)
[2018-05-31] MEDS ORDERED: Polyethylene Glycol 3350 17 GM Packet PO SCH (10:15)
[2018-05-31] MEDS: Enoxaparin Sodium 120 MG/0.8 ML SYRINGE SC SCH (10:34)
--- NOTE | 2018-05-31 11:13 | DIS ---
DATE OF ADMISSION: 05/28/2018 DATE OF DISCHARGE: 05/31/2018 DISCHARGE DISPOSITION: Home. FOLLOWUP: 1. Follow up with primary care physician Dr. Camarillo in 1 week. 2. Follow up with RADIATION PROTECTION TECHNICIAN Dr. oPp in 1 to 2 weeks. ALLERGIES: MORPHINE, PENICILLIN, AND TRAMADOL. DISCHARGE MEDICATIONS: 1. Eliquis 10 mg twice a day for total of 1 week, then 5 mg twice a day. Thirty day supply provided. The patient will require refills by primary care physician. 2. Keppra 500 mg twice a day. 3. Tylenol as needed. 4. Ferrous sulfate 325 mg daily. 5. MiraLAX as needed. 6. Senokot-S one tablet twice a day for next 10 days. 7. The patient was advised to discontinue taking ibuprofen or Aleve. 8. The patient was seen and examined on the day of discharge. Denies any new complaints. No chest pain, shortness of breath, palpitations reported. Inpatient development consultant: 1. Pulmonary, Dr. Gonzalez. 2. RADIATION PROTECTION TECHNICIAN, Dr. Ronnie Blas. BRIEF HOSPITAL COURSE: The patient is a 37-year-old female with recent hysterectomy, presented to the hospital with shortness of breath along with right-sided pleuritic chest pain. CT angiogram of the chest done in the emergency room was consistent with acute pulmonary embolism involving the branches of the right lower lobe pulmonary artery with possible early pulmonary infarct. The patient was evaluated by Pulmonary, Dr. Gonzalez. She was placed on 1 mg/kg of Lovenox. Bilateral lower extremity Doppler was negative for DVT. She also underwent abdominal ultrasound that was negative for acute findings. She had some issues with vaginal bleeding, for which she was evaluated by RADIATION PROTECTION TECHNICIAN, Dr. Pop as well as Dr. Blas. The vaginal bleeding is scant in nature and there is overall good healing of her vaginal cuff. This should not interfere with the treatment of pulmonary embolism per RADIATION PROTECTION TECHNICIAN. She has been started on Eliquis. I discussed with the pharmacist, who advised that the Eliquis is covered by her insurance. She was advised to return to emergency room if her bleeding worsens. She understands the risks, not limited to life threatening bleeding from anticoagulation. FINAL DIAGNOSES: 1. Right-sided pulmonary embolism with suspected pulmonary infarct. 2. Recent hysterectomy. 3. Morbid obesity with a BMI of 40.2. 4. Minimal vaginal bleeding related to recent procedure. 5. Chronic anemia. 6. Seizure disorder. 7. History of colon polyp. 8. Constipation. 9. Bipolar disorder. PLAN: Plan of care was discussed with the patient in detail. She stated understanding. Job ID: [id number]
== END 2018-05-31 11:57 | disposition home or self-care (01) | DRG 176 ==
LOC: ERS 21:24 → ERHOLD 05-28 02:26 → 2NO 05-28 15:25
PROVIDERS: ADMIT Hospitalist; ATTEND Hospitalist
DX: I26.99 Other pulmonary embolism without acute cor pulmonale (principal); Z68.41 Body mass index [BMI] 40.0-44.9, adult; E66.01 Morbid (severe) obesity due to excess calories; K21.9 Gastro-esophageal reflux disease without esophagitis; G40.909 Epilepsy, unspecified, not intractable, without status epilepticus; F41.9 Anxiety disorder, unspecified; F31.9 Bipolar disorder, unspecified; D50.9 Iron deficiency anemia, unspecified; R31.9 Hematuria, unspecified; N93.9 Abnormal uterine and vaginal bleeding, unspecified; K59.00 Constipation, unspecified; Z90.710 Acquired absence of both cervix and uterus; Z86.010 Personal history of colon polyps; Z90.89 Acquired absence of other organs; Z98.890 Other specified postprocedural states; Z98.51 Tubal ligation status; Z88.0 Allergy status to penicillin; Z88.5 Allergy status to narcotic agent
CPT/HCPCS: 36415; 71275; 76705; 80048; 80053; 81001; 81003; 82550; 82565; 82728; 83540; 83550; 83690; 84484; 85014; 85018; 85025; 85049; 85379; 85610; 85730; 87086; 93005; 93970; 96361; 96372; 96374; 96375; J1650; J1885; J2405; Q0162; Q9966

== ENCOUNTER 2018-06-06 00:19 | Emergency (ER) | payer OTHER ==
[2018-06-06 01:13] LABS: INR-International Normal Ratio 1.2; PTT 36.8 SEC (22.9-36.1); Prothrombin Time 15.4 SEC (12.0-14.7)
[2018-06-06 01:21] LABS: ALT (SGPT) 12 U/L (8-55); AST (SGOT) 12 U/L (5-34); Albumin 3.5 g/dL (3.5-5.0); Alkaline Phosphatase 69 U/L (40-150); Anion Gap 12 mmol/L (10-20); BUN (Urea Nitrogen) 8 mg/dL (7.0-18.7); Calc. Creatinine Clearance 0 mL/min (70-130); Calcium 9.4 mg/dL (7.8-10.44); Carbon Dioxide 22 mmol/L (22-29); Chloride 108 mmol/L (98-107); Estimated GFR-MDRD Greater than 90; Globulin 3.5 g/dL (2.4-3.5); Glucose 100 mg/dL (70-105); Potassium 3.9 mmol/L (3.5-5.1); Sodium 138 mmol/L (136-145)
[2018-06-06 01:31] LABS: #Basophils 0.1 thou/uL (0.0-0.2); #Eosinphils 0.2 thou/uL (0.0-0.7); #Lymphocytes 1.8 thou/uL (1.20-3.40); #Monocytes 0.5 thou/uL (0.11-0.59); #Neutrophils 5.5 thou/uL (1.40-6.50); %Eosinophils 2.7 % (0.0-10.0); %Lymphocytes 22.5 % (21.0-51.0); %Monocytes 6.3 % (0.0-10.0); %Neutrophils 67.5 % (42.0-75.0); Anisocytosis SLIGHT = 6-15 cells (100X) (0-5/hpf); Bilirubin, Total 0.2 mg/dL (0.2-1.2); MDiff Complete? YES; Mean Corpuscular HGB CONC 30.4 g/dL (32.0-36.0); Mean Corpuscular Hemoglobin 22.9 pg (27.0-31.0); Mean Corpuscular Volume 75.5 fL (78.0-98.0); Mean Platelet Volume 6.5 fL (7.4-10.4); Platelet Count 324 thou/uL (130-400); RBC Distribution Width 15.6 % (11.5-14.5); Red Blood Cell (RBC) Count 4.78 mill/uL (4.20-5.40); White Blood Cell (WBC) Count 8.1 thou/uL (4.8-10.8)
--- NOTE | 2018-06-06 08:14 | CT ---
PRELIMINARY REPORT/[facility]/EMERGENCY AFTER HOURS PROCEDURE: EXAM: CT Angiography Chest With Contrast EXAM DATE/TIME: 06/06/2018 1:12 AM CLINICAL HISTORY: 37 years old, female; Pain; Chest pain; Patient HX: Patient had recent diagnosis of provoked pe (rece nt surgery). This was associated with right pleuritic pain. Patient was started on lovenox and transi tioned to eliquis po. She reports compliance with this. Oover the past 48 hours the pain returned wit h mild dyspnea. Patient reports mild pain associated with her hysterectomy which has been present sin ce the surgery and is unchanged. TECHNIQUE: Axial computed tomographic angiography images of the chest with intravenous contrast using CT angiogr aphy protocol. Coronal reformatted images were created and reviewed. MIP reconstructed images were created and reviewed. CONTRAST: Contrast Material: 85 ml of [id number]; Contrast Route: IV COMPARISON: CTA Angio Chest W WO Con 05/28/2018 1:51 AM FINDINGS: Pulmonary arteries: Normal. No pulmonary emboli. Aorta: Normal. No aortic aneurysm. No aortic dissection. Lungs: Normal. No consolidation. No masses. Pleural space: Normal. No pneumothorax. No pleural effusion. Heart: Normal. No cardiomegaly. No pericardial effusion. Lymph nodes: Unremarkable. No enlarged lymph nodes. Bones/joints: Unremarkable. No acute fracture. Soft tissues: Unremarkable. IMPRESSION: No acute findings. Thank you for allowing us to participate in the care of your patient. Dictated and Authenticated by: Donovan Darby MD 06/06/2018 2:41 AM Central Time ([place] & [place]) FINAL REPORT CT PULMONARY ANGIOGRAM WITH IV CONTRAST AND 3D POSTPROCESSING: I agree with the preliminary report given by Dr. Donovan Darby of [facility]. POS: [facility]
== END 2018-06-06 03:00 | disposition home or self-care (01) ==
LOC: SCSER 00:19
DX: R07.81 Pleurodynia (principal); I25.2 Old myocardial infarction; K21.9 Gastro-esophageal reflux disease without esophagitis; G40.909 Epilepsy, unspecified, not intractable, without status epilepticus; D64.9 Anemia, unspecified; F41.9 Anxiety disorder, unspecified; F31.9 Bipolar disorder, unspecified; Z79.899 Other long term (current) drug therapy
CPT/HCPCS: 71275; 80053; 83880; 84484; 85025; 85610; 85730; 93005

== ENCOUNTER 2018-08-08 21:31 | Emergency (ER) | payer OTHER | END 2018-08-08 21:55 | disposition home or self-care (01) | LOC: SCSER 21:31 | DX: Z20.2 Contact with and (suspected) exposure to infections with a predominantly sexual mode of transmission (principal); I25.2 Old myocardial infarction; K21.9 Gastro-esophageal reflux disease without esophagitis; G40.909 Epilepsy, unspecified, not intractable, without status epilepticus; D64.9 Anemia, unspecified; F41.9 Anxiety disorder, unspecified; F31.9 Bipolar disorder, unspecified; Z79.899 Other long term (current) drug therapy | CPT/HCPCS: 99281 ==

== ENCOUNTER 2018-09-25 22:21 | Emergency (ER) | payer OTHER ==
[2018-09-25 22:57] LABS: #Eosinphils 0.2 thou/uL (0.0-0.7); #Lymphocytes 1.6 thou/uL (1.20-3.40); #Monocytes 0.3 thou/uL (0.11-0.59); #Neutrophils 4.4 thou/uL (1.40-6.50); %Basophils 0.4 % (0.0-1.0); %Eosinophils 2.6 % (0.0-10.0); %Lymphocytes 24.8 % (21.0-51.0); %Monocytes 4.5 % (0.0-10.0); %Neutrophils 67.7 % (42.0-75.0); Hemoglobin 11.6 g/dL (12.0-16.0); Mean Corpuscular Hemoglobin 24.5 pg (27.0-31.0); Mean Corpuscular Volume 76.4 fL (78.0-98.0); Mean Platelet Volume 8.8 fL (7.4-10.4); Platelet Count 307 thou/uL (130-400); RBC Distribution Width 15.5 % (11.5-14.5); Red Blood Cell (RBC) Count 4.76 mill/uL (4.20-5.40); White Blood Cell (WBC) Count 6.5 thou/uL (4.8-10.8)
[2018-09-25 23:18] LABS: ALT (SGPT) 8 U/L (8-55); AST (SGOT) 8 U/L (5-34); Albumin 3.4 g/dL (3.5-5.0); Alkaline Phosphatase 59 U/L (40-150); Anion Gap 11 mmol/L (10-20); BUN (Urea Nitrogen) 6 mg/dL (7.0-18.7); Bilirubin, Total 0.3 mg/dL (0.2-1.2); Calc. Creatinine Clearance 0 mL/min (70-130); Calcium 8.9 mg/dL (7.8-10.44); Carbon Dioxide 19 mmol/L (22-29); Chloride 110 mmol/L (98-107); Estimated GFR-MDRD Greater than 90; Globulin 3.2 g/dL (2.4-3.5); Glucose 101 mg/dL (70-105); Potassium 3.7 mmol/L (3.5-5.1); Protein, Total 6.6 g/dL (6.0-8.3); Sodium 136 mmol/L (136-145)
[2018-09-25] MEDS ORDERED: Acetaminophen 500 MG TAB ONE (23:33)
[2018-09-25] MEDS ORDERED: Ondansetron PF 4 MG/2 ML Vial ONE (23:56)
--- NOTE | 2018-09-25 23:56 | CT ---
EXAM: CTA of the chest HISTORY: Chest pain and seizure like activity COMPARISON: 06/06/2018 TECHNIQUE: Multiple contiguous axial images were obtained a CTA of the chest with contrast per pulmon rica embolism protocol. 3-D oblique MIP reformats and direct coronal reformats were performed. FINDINGS: HEART: Global cardiomegaly without acute focal abnormality. PULMONARY ARTERIES: Normal in caliber without filling defects to suggest pulmonary emboli. MEDIASTINUM: No hilar or mediastinal lymphadenopathy. LUNGS: No focal infiltrates or masses. PLEURAL SPACE: No pleural effusion or pneumothorax. CHEST WALL SOFT TISSUES: Unremarkable VISUALIZED OSSEOUS STRUCTURES: Unremarkable VISUALIZED SUBDIAPHRAGMATIC STRUCTURES: Unremarkable IMPRESSION: No evidence of pulmonary thromboembolism
[2018-09-26] MEDS ORDERED: levETIRAcetam 500 MG TAB PO SCH ×2 (00:15→00:45)
--- NOTE | 2018-09-28 21:36 | EKG ---
Test Reason : Blood Pressure : / mmHG Vent. Rate : 060 BPM Atrial Rate : 060 BPM P-R Int : 148 ms QRS Dur : 068 ms QT Int : 410 ms P-R-T Axes : 052 007 003 degrees QTc Int : 410 ms Normal sinus rhythm Normal ECG Confirmed by PAYAL VELEZ M.D. ([id number]), food expeditor MARK NAVARRO ([id number] on 09/28/2018 9:35:26 PM Referred By: Confirmed By:PAYAL VELEZ M.D.
== END 2018-09-26 00:41 | disposition home or self-care (01) ==
LOC: ERS 22:21
DX: G40.909 Epilepsy, unspecified, not intractable, without status epilepticus (principal); F41.9 Anxiety disorder, unspecified; F31.9 Bipolar disorder, unspecified; I25.2 Old myocardial infarction; K21.9 Gastro-esophageal reflux disease without esophagitis; D64.9 Anemia, unspecified; Z79.899 Other long term (current) drug therapy
CPT/HCPCS: 36415; 71275; 80053; 80177; 84146; 84484; 85025; 93005; 94760; 96374; J2405

== ENCOUNTER 2018-11-30 19:48 | Emergency (ER) | payer OTHER ==
[~2018-11-30 19:48] MED LIST: ISOVUE-370 76%-LOCM 1 ML ONE
[2018-11-30 20:33] LABS: #Basophils 0.1 thou/uL (0.0-0.2); #Eosinphils 0.2 thou/uL (0.0-0.7); #Lymphocytes 1.8 thou/uL (1.20-3.40); #Monocytes 0.4 thou/uL (0.11-0.59); #Neutrophils 4.9 thou/uL (1.40-6.50); %Basophils 1.2 % (0.0-1.0); %Eosinophils 2.6 % (0.0-10.0); %Lymphocytes 24.3 % (21.0-51.0); %Monocytes 5.6 % (0.0-10.0); %Neutrophils 66.4 % (42.0-75.0); Hemoglobin 11.6 g/dL (12.0-16.0); Mean Corpuscular Hemoglobin 24.4 pg (27.0-31.0); Mean Corpuscular Volume 76.2 fL (78.0-98.0); Mean Platelet Volume 8.4 fL (7.4-10.4); Platelet Count 308 thou/uL (130-400); Red Blood Cell (RBC) Count 4.73 mill/uL (4.20-5.40); White Blood Cell (WBC) Count 7.4 thou/uL (4.8-10.8)
--- NOTE | 2018-11-30 20:37 | RAD ---
EXAM: Single view of the chest HISTORY: Chest pain and dizziness COMPARISON: 12/29/2016 FINDINGS: Single view of the chest shows a normal sized cardiomediastinal silhouette. There is no germán dence of consolidation, mass, or pleural effusion. The bones are unremarkable. IMPRESSION: No evidence of acute cardiopulmonary disease
[2018-11-30 20:55] LABS: ALT (SGPT) 9 U/L (8-55); AST (SGOT) 10 U/L (5-34); Albumin 3.8 g/dL (3.5-5.0); Alkaline Phosphatase 64 U/L (40-150); Anion Gap 13 mmol/L (10-20); BUN (Urea Nitrogen) 9 mg/dL (7.0-18.7); Bilirubin, Total 0.2 mg/dL (0.2-1.2); Calc. Creatinine Clearance 0 mL/min (70-130); Calcium 9.5 mg/dL (7.8-10.44); Carbon Dioxide 20 mmol/L (22-29); Chloride 108 mmol/L (98-107); Estimated GFR-MDRD Greater than 90; Globulin 3.2 g/dL (2.4-3.5); Glucose 91 mg/dL (70-105); Lipase 9 U/L (8-78); Potassium 3.7 mmol/L (3.5-5.1); Sodium 137 mmol/L (136-145)
[2018-11-30] MEDS ORDERED: Ketorolac Tromethamine 30 MG/ML VIAL ONE (21:35)
[2018-11-30] MEDS ORDERED: Metoclopramide HCl 10 MG/2 ML VIAL ONE (21:35)
[2018-11-30] MEDS ORDERED: diphenhydrAMINE 12.5 MG/5 ML UDCUP ONE (21:35)
[2018-11-30] MEDS ORDERED: Acetaminophen 325 MG TAB ONE (21:36)
[2018-11-30] MEDS ORDERED: diphenhydrAMINE 50 MG/ML VIAL ONE (21:37)
[2018-11-30] MEDS ORDERED: Acetaminophen 500 MG TAB ONE (21:50)
--- NOTE | 2018-11-30 22:36 | CT ---
EXAM: CTA of the chest HISTORY: Chest pain COMPARISON: 09/25/2018 TECHNIQUE: Multiple contiguous axial images were obtained a CTA of the chest with contrast per pulmon rica embolism protocol. 3-D oblique MIP reformats and direct coronal reformats were performed. FINDINGS: HEART: Enlarged heart without focal abnormality. PULMONARY ARTERIES: Normal in caliber without filling defects to suggest pulmonary emboli. MEDIASTINUM: No hilar or mediastinal lymphadenopathy. LUNGS: No focal infiltrates or masses. PLEURAL SPACE: No pleural effusion or pneumothorax. CHEST WALL SOFT TISSUES: Unremarkable VISUALIZED OSSEOUS STRUCTURES: Unremarkable VISUALIZED SUBDIAPHRAGMATIC STRUCTURES: Unremarkable IMPRESSION: No evidence of pulmonary thromboembolism
[2018-11-30 23:58] LABS: Troponin I Less than 0.010 ng/mL (< 0.028)
== END 2018-12-01 00:26 | disposition home or self-care (01) ==
LOC: ERS 19:48
DX: R07.89 Other chest pain (principal); I25.2 Old myocardial infarction; K21.9 Gastro-esophageal reflux disease without esophagitis; G40.909 Epilepsy, unspecified, not intractable, without status epilepticus; D64.9 Anemia, unspecified; F41.9 Anxiety disorder, unspecified; F32.9 Major depressive disorder, single episode, unspecified; Z79.899 Other long term (current) drug therapy
CPT/HCPCS: 36415; 71045; 71275; 80053; 83690; 84484; 85025; 85379; 93005; 96361; 96374; J1200; J1885; J2765; Q0163; Q9966

== ENCOUNTER 2019-01-22 22:03 | Emergency (ER) | payer OTHER ==
[2019-01-22] MEDS ORDERED: Cyclobenzaprine 10 MG TAB ONE (22:34)
[2019-01-22 22:45] LABS: Bilirubin Negative (Negative); Blood, Urine Negative (Negative); Clarity Clear (Clear); Glucose, Urine (Dipstick) Normal (Negative); Leukocyte Negative Leu/uL (Negative); Nitrite Negative (Negative); Protein, Urine (Dipstick) Negative (Neg-Trace); Urobilinogen 3 mg/dL (Less than 2)
[2019-01-22 22:47] LABS: Pregnancy Test - Urine (BHCG) Negative (Negative); Pregu Control Background? CLEAR/WHITE (CLR/WHITE); Pregu Control Bar Appear? YES (CONTROL BAR); Specific Gravity 1.028 (1.002-1.036)
[2019-01-22 23:08] LABS: #Eosinphils 0.3 thou/uL (0.0-0.7); #Lymphocytes 2.2 thou/uL (1.20-3.40); #Monocytes 0.4 thou/uL (0.11-0.59); %Basophils 0.5 % (0.0-1.0); %Eosinophils 3.5 % (0.0-10.0); %Lymphocytes 27.9 % (21.0-51.0); %Monocytes 5.3 % (0.0-10.0); %Neutrophils 62.8 % (42.0-75.0); Hemoglobin 11.1 g/dL (12.0-16.0); Mean Corpuscular HGB CONC 31.8 g/dL (32.0-36.0); Mean Corpuscular Hemoglobin 24.3 pg (27.0-31.0); Mean Corpuscular Volume 76.5 fL (78.0-98.0); Mean Platelet Volume 8.6 fL (7.4-10.4); Platelet Count 268 thou/uL (130-400); RBC Distribution Width 14.9 % (11.5-14.5); Red Blood Cell (RBC) Count 4.58 mill/uL (4.20-5.40)
[2019-01-22 23:20] LABS: ALT (SGPT) 8 U/L (8-55); AST (SGOT) 10 U/L (5-34); Albumin 3.5 g/dL (3.5-5.0); Alkaline Phosphatase 60 U/L (40-110); Anion Gap 10 mmol/L (10-20); BUN (Urea Nitrogen) 12 mg/dL (7.0-18.7); Bilirubin, Total 0.2 mg/dL (0.2-1.2); Calc. Creatinine Clearance 0 mL/min (70-130); Calcium 8.6 mg/dL (7.8-10.44); Carbon Dioxide 19 mmol/L (22-29); Chloride 109 mmol/L (98-107); Estimated GFR-MDRD Greater than 90; Globulin 3.2 g/dL (2.4-3.5); Glucose 91 mg/dL (70-105); Potassium 3.5 mmol/L (3.5-5.1); Protein, Total 6.7 g/dL (6.0-8.3); Sodium 134 mmol/L (136-145)
== END 2019-01-23 00:24 | disposition home or self-care (01) ==
LOC: ERS 22:03
DX: S39.012A Strain of muscle, fascia and tendon of lower back, initial encounter (principal); I25.2 Old myocardial infarction; K21.9 Gastro-esophageal reflux disease without esophagitis; D64.9 Anemia, unspecified; F41.9 Anxiety disorder, unspecified; F31.9 Bipolar disorder, unspecified; Z79.899 Other long term (current) drug therapy; X50.1XXA Overexertion from prolonged static or awkward postures, initial encounter
CPT/HCPCS: 36415; 80053; 81003; 81025; 85025; 85379; 93005

== ENCOUNTER 2019-06-13 12:39 | Outpatient (CLI) | payer OTHER ==
--- NOTE | 2019-06-13 13:30 | MMO ---
Bilateral MAMMO Bilat Screen DDI. CLINICAL HISTORY: Patient is 38 years old and is seen for screening. The patient has no family history of breast cancer. The patient has no personal history of cancer. VIEWS: The views performed were: bilateral craniocaudal and bilateral mediolateral oblique. This study has been interpreted with the assistance of computer-aided detection. MAMMOGRAM FINDINGS: There are scattered fibroglandular densities. There is an oval mass with circumscribed margins seen in the posterior upper-outer region of the left breast. This probably represents an intramammary lymph node, but a fatty hilum is not seen. In the right breast, there are no suspicious masses, calcifications or areas of architectural distortion. IMPRESSION: MASS IN THE LEFT BREAST REQUIRES ADDITIONAL EVALUATION. AN ULTRASOUND EXAM IS RECOMMENDED. ACR BI-RADS Category 0 - Incomplete: Need additional imaging evaluation. [facility] will notify the patient of the need for additional imaging services. MAMMOGRAPHY NOTE: 1. A negative mammogram report should not delay a biopsy if a dominant of clinically suspicious mass is present. 2. Approximately 10% to 15% of breast cancers are not detected by mammography. 3. Adenosis and dense breasts may obscure an underlying neoplasm. Reported by: ZURI EPPERSON MD Electonically Signed: [id number]
== END 2019-06-13 12:40 | disposition home or self-care (01) ==
LOC: BICMAMMO 12:39
PROVIDERS: ATTEND Family Medicine
DX: Z12.31 Encounter for screening mammogram for malignant neoplasm of breast (principal); N63.20 Unspecified lump in the left breast, unspecified quadrant
CPT/HCPCS: 77067

== ENCOUNTER 2019-06-18 15:22 | Outpatient (CLI) | payer OTHER ==
--- NOTE | 2019-06-18 15:48 | ULT ---
LEFT BREAST ULTRASOUND: COMPARISON: Mammogram 06/13/2019. HISTORY: Mass seen in the upper outer aspect of the left breast on screening mammography. TECHNIQUE: Multiplanar, younger scale and color Doppler images were obtained in a left breast ultrasound. FINDINGS: Multiple lymph nodes are seen in the left axilla. Slightly towards the nipple, there is a 6-7 mm are a which likely represents an intramammary lymph node. This likely corresponds to the mammographic ab normality. This is approximately 15 cm from the nipple. No suspicious shadowing or suspicious mass is identified. IMPRESSION: BIRADS category 2 - benign findings. Annual screening mammography is recommended.
== END 2019-06-18 15:23 | disposition home or self-care (01) ==
LOC: BICULT 15:22
PROVIDERS: ATTEND Family Medicine
DX: N63.21 Unspecified lump in the left breast, upper outer quadrant (principal)

== ENCOUNTER 2019-08-08 23:41 | Emergency (ER) | payer OTHER ==
[2019-08-09] MEDS ORDERED: Lidocaine Viscous Sol 2% 15 ml UD Cup ONE (00:25)
[2019-08-09] MEDS ORDERED: Mag-Al 1200 mg/1200 mg/30 ML UDCUP ONE (00:25)
[2019-08-09 00:30] LABS: #Basophils 0.1 thou/uL (0.0-0.2); #Eosinphils 0.2 thou/uL (0.0-0.7); #Monocytes 0.5 thou/uL (0.11-0.59); #Neutrophils 5.4 thou/uL (1.40-6.50); %Basophils 0.7 % (0.0-1.0); %Eosinophils 2.3 % (0.0-10.0); %Lymphocytes 24.9 % (21.0-51.0); %Monocytes 6.6 % (0.0-10.0); %Neutrophils 65.5 % (42.0-75.0); Hemoglobin 12.1 g/dL (12.0-16.0); Mean Corpuscular HGB CONC 31.5 g/dL (32.0-36.0); Mean Corpuscular Hemoglobin 24.6 pg (27.0-31.0); Mean Platelet Volume 8.7 fL (7.4-10.4); Platelet Count 332 thou/uL (130-400); RBC Distribution Width 14.4 % (11.5-14.5); Red Blood Cell (RBC) Count 4.91 mill/uL (4.20-5.40); White Blood Cell (WBC) Count 8.2 thou/uL (4.8-10.8)
[2019-08-09 00:52] LABS: ALT (SGPT) 10 U/L (8-55); AST (SGOT) 17 U/L (5-34); Albumin 3.7 g/dL (3.5-5.0); Alkaline Phosphatase 70 U/L (40-110); Anion Gap 14 mmol/L (10-20); BUN (Urea Nitrogen) 11 mg/dL (7.0-18.7); Bilirubin, Total 0.3 mg/dL (0.2-1.2); Calc. Creatinine Clearance 0 mL/min (70-130); Calcium 9.1 mg/dL (7.8-10.44); Carbon Dioxide 22 mmol/L (22-29); Chloride 107 mmol/L (98-107); Estimated GFR-MDRD Greater than 90; Globulin 4.1 g/dL (2.4-3.5); Glucose 104 mg/dL (70-105); Lipase 10 U/L (8-78); Protein, Total 7.8 g/dL (6.0-8.3); Sodium 139 mmol/L (136-145)
[2019-08-09] MEDS ORDERED: Ketorolac Tromethamine 30 MG/ML VIAL ONE (01:02)
[2019-08-09 01:41] LABS: Bilirubin Negative (Negative); Blood, Urine Negative (Negative); Clarity Clear (Clear); Glucose, Urine (Dipstick) Normal (Negative); Leukocyte Negative Leu/uL (Negative); Nitrite Negative (Negative); Protein, Urine (Dipstick) 10 mg/dL (Neg-Trace); Urobilinogen 3 mg/dL (Less than 2)
== END 2019-08-09 02:23 | disposition home or self-care (01) ==
LOC: ERS 23:41
DX: R10.12 Left upper quadrant pain (principal); K21.9 Gastro-esophageal reflux disease without esophagitis; G40.909 Epilepsy, unspecified, not intractable, without status epilepticus; I25.2 Old myocardial infarction; F41.9 Anxiety disorder, unspecified; F31.9 Bipolar disorder, unspecified; Z79.899 Other long term (current) drug therapy
CPT/HCPCS: 80053; 81003; 83690; 85025; 96374; J1885

== ENCOUNTER 2019-09-28 20:13 | Emergency (ER) | payer OTHER ==
[2019-09-28] MEDS ORDERED: HYDROcodone/Acetaminophen 5/325 mg Tablet ONE (20:39)
[2019-09-28] MEDS ORDERED: Ibuprofen 200 MG TAB ONE (20:40)
[2019-09-28 20:51] LABS: Bilirubin Negative (Negative); Blood, Urine Negative (Negative); Clarity Clear (Clear); Glucose, Urine (Dipstick) Normal (Negative); Ketone, Urine Negative (Negative); Leukocyte Negative Leu/uL (Negative); Nitrite Negative (Negative); Protein, Urine (Dipstick) Negative (Neg-Trace); Specific Gravity, Urine 1.025 (1.002-1.036); Urobilinogen 3 mg/dL (Less than 2); pH, Urine 7.5 (5.0-9.0)
== END 2019-09-28 21:05 | disposition home or self-care (01) ==
LOC: ERS 20:13
DX: R10.9 Unspecified abdominal pain (principal); I25.2 Old myocardial infarction; K21.9 Gastro-esophageal reflux disease without esophagitis; F41.9 Anxiety disorder, unspecified; G40.909 Epilepsy, unspecified, not intractable, without status epilepticus; Z79.899 Other long term (current) drug therapy
CPT/HCPCS: 81003

== ENCOUNTER 2019-12-21 15:31 | Emergency (ER) | payer OTHER | END 2019-12-21 16:02 | disposition home or self-care (01) | LOC: ERS 15:31 | DX: K05.10 Chronic gingivitis, plaque induced (principal); K04.7 Periapical abscess without sinus; K02.9 Dental caries, unspecified; I25.10 Atherosclerotic heart disease of native coronary artery without angina pectoris; K21.9 Gastro-esophageal reflux disease without esophagitis; D64.9 Anemia, unspecified; F41.9 Anxiety disorder, unspecified; F31.9 Bipolar disorder, unspecified; G40.909 Epilepsy, unspecified, not intractable, without status epilepticus; Z79.899 Other long term (current) drug therapy | CPT/HCPCS: 99283 ==

== ENCOUNTER 2020-02-15 21:02 | Emergency (ER) | payer OTHER ==
[2020-02-15] MEDS ORDERED: HYDROcodone/Acetaminophen 5/325 mg Tablet ONE (21:49)
[2020-02-15] MEDS ORDERED: Ketorolac Tromethamine 30 MG/ML VIAL ONE (21:50)
== END 2020-02-15 22:11 | disposition home or self-care (01) ==
LOC: ERS 21:02
DX: K43.9 Ventral hernia without obstruction or gangrene (principal); I25.2 Old myocardial infarction; K21.9 Gastro-esophageal reflux disease without esophagitis; G40.909 Epilepsy, unspecified, not intractable, without status epilepticus; D64.9 Anemia, unspecified; F41.9 Anxiety disorder, unspecified; F31.9 Bipolar disorder, unspecified; Z79.899 Other long term (current) drug therapy
CPT/HCPCS: 96372; 99283; J1885

== ENCOUNTER 2020-02-21 21:42 | Emergency (ER) | payer OTHER ==
[2020-02-21 22:54] LABS: #Basophils 0.1 thou/uL (0.0-0.2); #Eosinphils 0.2 thou/uL (0.0-0.7); #Lymphocytes 2.4 thou/uL (1.20-3.40); #Monocytes 0.5 thou/uL (0.11-0.59); #Neutrophils 4.9 thou/uL (1.40-6.50); %Basophils 0.8 % (0.0-1.0); %Eosinophils 2.8 % (0.0-10.0); %Lymphocytes 29.6 % (21.0-51.0); %Monocytes 5.9 % (0.0-10.0); Hemoglobin 11.6 g/dL (12.0-16.0); Mean Corpuscular HGB CONC 31.1 g/dL (32.0-36.0); Mean Corpuscular Hemoglobin 23.8 pg (27.0-31.0); Mean Corpuscular Volume 76.6 fL (78.0-98.0); Mean Platelet Volume 9.5 fL (7.4-10.4); Platelet Count 274 thou/uL (130-400); RBC Distribution Width 14.8 % (11.5-14.5); Red Blood Cell (RBC) Count 4.85 mill/uL (4.20-5.40); White Blood Cell (WBC) Count 8.1 thou/uL (4.8-10.8)
[2020-02-21 23:00] LABS: BHCG - Serum Negative (NEGATIVE); Pregs Control Background? CLEAR/WHITE (CLR/WHITE); Pregs Control Bar Appear? YES (CONTROL BAR)
[2020-02-21] MEDS ORDERED: HYDROcodone/Acetaminophen 7.5/325 mg Tablet ONE (23:08)
[2020-02-21 23:18] LABS: ALT (SGPT) 9 U/L (8-55); AST (SGOT) 15 U/L (5-34); Albumin 3.4 g/dL (3.5-5.0); Alkaline Phosphatase 65 U/L (40-110); Anion Gap 13 mmol/L (10-20); BUN (Urea Nitrogen) 10 mg/dL (7.0-18.7); Bilirubin, Total Less than 0.2 mg/dL (0.2-1.2); Calc. Creatinine Clearance 0 mL/min (70-130); Carbon Dioxide 21 mmol/L (22-29); Chloride 108 mmol/L (98-107); Estimated GFR-MDRD Greater than 90; Globulin 3.7 g/dL (2.4-3.5); Glucose 100 mg/dL (70-105); Lipase 16 U/L (8-78); Potassium 4.1 mmol/L (3.5-5.1); Protein, Total 7.1 g/dL (6.0-8.3); Sodium 138 mmol/L (136-145)
[2020-02-21 23:54] LABS: Bilirubin Negative (Negative); Blood, Urine Negative (Negative); Clarity Clear (Clear); Glucose, Urine (Dipstick) Normal (Negative); Ketone, Urine Negative (Negative); Leukocyte Negative Leu/uL (Negative); Nitrite Negative (Negative); Protein, Urine (Dipstick) Negative (Neg-Trace); Specific Gravity, Urine 1.015 (1.002-1.036); Urobilinogen Normal mg/dL (Less than 2); pH, Urine 6.5 (5.0-9.0)
== END 2020-02-22 00:50 | disposition home or self-care (01) ==
LOC: ERS 21:42
DX: K43.9 Ventral hernia without obstruction or gangrene (principal); K21.9 Gastro-esophageal reflux disease without esophagitis; G40.909 Epilepsy, unspecified, not intractable, without status epilepticus; D64.9 Anemia, unspecified; F41.9 Anxiety disorder, unspecified; F31.9 Bipolar disorder, unspecified; Z79.899 Other long term (current) drug therapy
CPT/HCPCS: 80053; 81003; 83690; 84703; 85025; 99284

== ENCOUNTER 2020-02-25 16:05 | Outpatient (CLI) | payer OTHER ==
[2020-02-25 18:06] LABS: #Eosinphils 0.3 10x3/uL (0.0-0.5); #Monocytes 0.4 10x3/uL (0.0-1.1); #Neutrophils 4.5 10x3/uL (1.5-8.4); %Basophils 0.4 % (0.0-2.0); %Eosinophils 3.6 % (0.0-6.0); %Lymphocytes 24.7 % (18.0-47.0); %Monocytes 5.4 % (0.0-10.0); %Neutrophils 65.6 % (40.0-75.0); Hemoglobin 11.4 g/dL (12.0-16.0); Mean Corpuscular HGB CONC 31.4 G/DL (32.0-36.0); Mean Corpuscular Hemoglobin 23.8 PG (27.0-33.0); Mean Corpuscular Volume 75.8 fl (80.0-100.0); Mean Platelet Volume 10.7 fl (7.4-10.4); Platelet Count 356 10x3/uL (130-400); RBC Distribution Width 15.9 % (11.5-14.5); Red Blood Cell (RBC) Count 4.79 10x6/uL (3.90-5.20); White Blood Cell (WBC) Count 6.9 10x3/uL (4.5-11.0)
[2020-02-25 18:41] LABS: BHCG - Serum Negative (NEGATIVE); Pregs Control Background? CLEAR/WHITE (CLR/WHITE); Pregs Control Bar Appear? YES (CONTROL BAR)
[2020-02-26 03:11] LABS: SARS-CoV-2 MS2 Positive; SARS-CoV-2 N Gene Negative; SARS-CoV-2 S Gene Negative; SARS-CoV-2 by NAA Not Detected (NotDetected); SARS-CoV-2 orf1ab Negative
== END 2020-02-25 16:06 | disposition home or self-care (01) ==
LOC: LABBT 16:05
PROVIDERS: ATTEND Surgery
DX: Z01.812 Encounter for preprocedural laboratory examination (principal); Z20.828 Contact with and (suspected) exposure to other viral communicable diseases; K43.2 Incisional hernia without obstruction or gangrene
CPT/HCPCS: 84703; 85025; 87635; U0003

== ENCOUNTER 2020-03-01 05:41 | Observation (INO) | payer OTHER ==
[2020-02-27 09:58] VITALS: BMI 40.1
[2020-03-01] MEDS ORDERED: Bupivacaine 0.25% HCL 30 ML VIAL ONE (06:35)
[2020-03-01] MEDS ORDERED: Lidocaine 1% w/Epinephrine 1:100K 20 ML VIAL ONE (06:35)
[2020-03-01] MEDS ORDERED: Fentanyl 100 MCG/2 ML VIAL ONE ×4 (06:51→12:52)
[2020-03-01] MEDS ORDERED: Midazolam HCl 2 mg/2 ml Vial ONE (06:52)
[2020-03-01] MEDS ORDERED: Levofloxacin 500 mg/D5W 100 ml Premix Bag ONE (06:57)
[2020-03-01] MEDS ORDERED: Ondansetron HCl/PF 4 MG/2 ML Vial IVP PRN (08:56)
[2020-03-01] MEDS ORDERED: Promethazine HCl 25 MG/ML VIAL IM PRN ×2 (08:56)
[2020-03-01] MEDS ORDERED: Dextrose 5% in Water 1,000 ML IV PRN (08:56)
[2020-03-01] MEDS ORDERED: Ketorolac Tromethamine 30 MG/ML VIAL IVP PRN (08:56)
[2020-03-01] MEDS ORDERED: hydrALAZINE 20 MG/ML VIAL SLOW IVP PRN (08:56)
[2020-03-01] MEDS ORDERED: Dextrose 50% Abboject 50 ML SYRINGE SLOW IVP PRN (08:56)
[2020-03-01] MEDS ORDERED: Ondansetron PF 4 MG/2 ML Vial IVP PRN (08:56)
[2020-03-01] MEDS ORDERED: Promethazine HCl 25 MG/ML VIAL SLOW IVP PRN (08:56)
[2020-03-01] MEDS ORDERED: PROPOFOL 200 MG/20 ML VIAL ONE (11:12)
[2020-03-01] MEDS ORDERED: Lidocaine 1% PF 5 ML VIAL ONE (11:12)
[2020-03-01] MEDS ORDERED: Ondansetron PF 4 MG/2 ML Vial ONE (11:12)
[2020-03-01] MEDS ORDERED: Dexamethasone 20 MG/5 ML VIAL ONE (11:12)
[2020-03-01] MEDS ORDERED: Glycopyrrolate 0.2 MG/ML 5 ML SYRINGE ONE (11:12)
[2020-03-01] MEDS ORDERED: Rocuronium Bromide 10 MG/ML (10ML VIAL) ONE (11:12)
--- NOTE | 2020-03-01 12:18 | OP ---
DATE OF PROCEDURE: 03/01/2020 PREOPERATIVE DIAGNOSIS: Recurrent ventral hernia. PROCEDURE PERFORMED: Laparoscopic ventral hernia repair. INDICATIONS: This is a 39-year-old female, who has had at least three previous ventral hernia repairs, one was open, two laparoscopic. She has a lot of mesh in there. She had a recurrent bulge that would go away when she was supine. FINDINGS: There was a tear in the mesh just above the umbilicus about 2 cm defect. It did not really contain any significant tissue. There were extensive adhesions that had to be taken down to reveal that. DESCRIPTION OF PROCEDURE: After informed consent was obtained, the patient was taken to the operating room, given general endotracheal anesthesia, placed in the supine position with the right side bumped slightly. Her abdomen and flank were prepped and draped in usual fashion. Local anesthesia was infiltrated subcutaneously and deep, and a 12 mm incision was performed in the right flank. A Veress needle inserted, drop test performed. Pneumoperitoneum was created to a volume of 2 L of carbon dioxide. Using a bladeless 12 mm trocar and 0 degree laparoscope, direct visual entry into the abdominal cavity was performed. Pneumoperitoneum was created to a pressure of 15 mmHg. Under direct vision, two 5 mm ports were placed, one right inferior and one right superior. A laparoscopic lysis of adhesions was performed using the LigaSure. The anterior abdominal wall was completely cleaned. Mesh was visualized extending from the falciform ligament down to almost the pubis. The area which we had marked preoperatively was more of a diastasis, but there was a tear in the mesh, so this was closed with a #1 PDS V-Loc suture from left to right transversely. I did not add any new mesh. The abdomen decompressed. The scope removed. The skin closed with interrupted 4-0 Rapide. Dermabond applied. The patient tolerated the procedure well, transferred to Recovery in good condition. Sponge and needle count verified correct x2. Job ID: [id number]
[2020-03-01] MEDS: Famotidine 20 MG TAB PO SCH ×2 (13:45→22:00)
[2020-03-01] MEDS: Famotidine/PF 20 mg/2ml Vial SLOW IVP SCH ×2 (13:45→22:04)
[2020-03-01] MEDS: Lactated Ringer's 1,000 ML IV SCH ×2 (13:45→22:03)
[2020-03-01] MEDS: Ketorolac Tromethamine 30 MG/ML VIAL IVP SCH ×3 (13:45→23:33)
[2020-03-02] MEDS: Ketorolac Tromethamine 30 MG/ML VIAL IVP SCH ×2 (05:20→11:32)
[2020-03-02] MEDS: Lactated Ringer's 1,000 ML IV SCH ×2 (05:28→11:35)
[2020-03-02] MEDS ORDERED: Enoxaparin Sodium 40 MG/0.4 ML SYRINGE SC SCH (06:00)
[2020-03-02 06:45] LABS: #Lymphocytes 0.9 thou/uL (1.20-3.40); #Monocytes 0.6 thou/uL (0.11-0.59); #Neutrophils 9.9 thou/uL (1.40-6.50); %Eosinophils 0.1 % (0.0-10.0); %Lymphocytes 7.8 % (21.0-51.0); %Neutrophils 87.1 % (42.0-75.0); Hemoglobin 11.3 g/dL (12.0-16.0); Mean Corpuscular HGB CONC 31.9 g/dL (32.0-36.0); Mean Corpuscular Hemoglobin 24.9 pg (27.0-31.0); Mean Corpuscular Volume 78.3 fL (78.0-98.0); Mean Platelet Volume 8.4 fL (7.4-10.4); Platelet Count 296 thou/uL (130-400); RBC Distribution Width 14.5 % (11.5-14.5); Red Blood Cell (RBC) Count 4.52 mill/uL (4.20-5.40); White Blood Cell (WBC) Count 11.3 thou/uL (4.8-10.8)
[2020-03-02 07:05] LABS: Anion Gap 14 mmol/L (10-20); BUN (Urea Nitrogen) 13 mg/dL (7.0-18.7); Calc. Creatinine Clearance 187 mL/min (70-130); Carbon Dioxide 20 mmol/L (22-29); Chloride 106 mmol/L (98-107); Glucose 134 mg/dL (70-105); Potassium 4.3 mmol/L (3.5-5.1); Sodium 136 mmol/L (136-145)
[2020-03-02] MEDS: Famotidine/PF 20 mg/2ml Vial SLOW IVP SCH (08:05)
[2020-03-02] MEDS: Famotidine 20 MG TAB PO SCH (08:08)
[2020-03-02] MEDS ORDERED: HYDROcodone/Acetaminophen 10/325 mg Tablet PO PRN ×2 (09:49)
[2020-03-02 11:35] VITALS: BP 100/54; TEMP 98.1
[2020-03-03] MEDS ORDERED: Enoxaparin Sodium 40 MG/0.4 ML SYRINGE SC SCH (09:00)
--- NOTE | 2020-03-03 11:04 | DIS ---
DATE OF ADMISSION: 03/01/2020 DATE OF DISCHARGE: 03/02/2020 DISCHARGE DIAGNOSIS: Recurrent incisional ventral hernia. PROCEDURES DURING ADMISSION: Laparoscopic ventral hernia repair. HOSPITAL COURSE: The patient was admitted, taken to the operating room, where she underwent a laparoscopic repair of recurrent ventral hernia. Postoperatively, she had quite a bit of pain, required stay overnight, is doing better now. She is passing gas, tolerating diet. She is discharged home on hydrocodone and Zofran. She will follow up with me in 2 weeks. Job ID: [id number]
== END 2020-03-02 13:47 | disposition home or self-care (01) ==
LOC: SDC 05:41 → 3SE 08:56
PROVIDERS: ADMIT Surgery; ATTEND Surgery
PROC: 0WQF4ZZ Repair Abdominal Wall, Percutaneous Endoscopic Approach (ICD-10-PCS; principal; 2020-03-01)
DX: K43.2 Incisional hernia without obstruction or gangrene (principal); G89.29 Other chronic pain; M54.9 Dorsalgia, unspecified; R56.9 Unspecified convulsions; Z79.899 Other long term (current) drug therapy; Z88.0 Allergy status to penicillin; Z88.5 Allergy status to narcotic agent
CPT/HCPCS: 36415; 80048; 85025; 96372; 96374; 96375; 96376; G0378; J1100; J1650; J1885; J1956; J2250; J2405; J2704; J3010; S0020

== ENCOUNTER 2020-07-27 22:57 | Emergency (ER) | payer OTHER ==
[2020-07-27] MEDS ORDERED: Ondansetron ODT 4 MG TAB ONE (23:27)
[2020-07-27] MEDS ORDERED: Ketorolac Tromethamine 30 MG/ML VIAL ONE (23:27)
== END 2020-07-28 00:02 | disposition home or self-care (01) ==
LOC: ERS 22:57
DX: R07.89 Other chest pain (principal); T50.B95A Adverse effect of other viral vaccines, initial encounter; I25.2 Old myocardial infarction; D64.9 Anemia, unspecified
CPT/HCPCS: 71046; 93005; 96372; J1885; Q0162

== ENCOUNTER 2020-11-16 09:17 | Emergency (ER) | payer OTHER ==
[2020-11-16 09:38] LABS: #Eosinphils 0.2 thou/uL (0.0-0.7); #Lymphocytes 1.7 thou/uL (1.20-3.40); #Monocytes 0.4 thou/uL (0.11-0.59); #Neutrophils 3.8 thou/uL (1.40-6.50); %Basophils 0.2 % (0.0-1.0); %Eosinophils 2.9 % (0.0-10.0); %Lymphocytes 27.4 % (21.0-51.0); %Neutrophils 62.4 % (42.0-75.0); Hemoglobin 11.9 g/dL (12.0-16.0); Mean Corpuscular HGB CONC 32.3 g/dL (32.0-36.0); Mean Corpuscular Hemoglobin 24.6 pg (27.0-31.0); Mean Corpuscular Volume 76.1 fL (78.0-98.0); Mean Platelet Volume 8.5 fL (7.4-10.4); Platelet Count 286 thou/uL (130-400); RBC Distribution Width 14.8 % (11.5-14.5); Red Blood Cell (RBC) Count 4.83 mill/uL (4.20-5.40)
[2020-11-16 09:58] LABS: ALT (SGPT) 11 U/L (8-55); AST (SGOT) 12 U/L (5-34); Albumin 3.4 g/dL (3.5-5.0); Alkaline Phosphatase 63 U/L (40-110); Anion Gap 9 mmol/L (10-20); BUN (Urea Nitrogen) 6 mg/dL (7.0-18.7); Bilirubin, Total 0.4 mg/dL (0.2-1.2); Calc. Creatinine Clearance 0 mL/min (70-130); Calcium 9.2 mg/dL (7.8-10.44); Carbon Dioxide 22 mmol/L (22-29); Chloride 107 mmol/L (98-107); Globulin 3.6 g/dL (2.4-3.5); Glucose 103 mg/dL (70-105); Lipase 17 U/L (8-78); Potassium 3.8 mmol/L (3.5-5.1); Sodium 134 mmol/L (136-145)
[2020-11-16 12:14] LABS: Troponin I Less than 0.010 ng/mL (< 0.028)
== END 2020-11-16 13:30 | disposition home or self-care (01) ==
LOC: ERS 09:17
DX: R07.9 Chest pain, unspecified (principal); R25.3 Fasciculation; I25.2 Old myocardial infarction; K21.9 Gastro-esophageal reflux disease without esophagitis; D64.9 Anemia, unspecified
CPT/HCPCS: 36415; 71045; 80053; 83690; 84484; 85025; 93005; 94760

== ENCOUNTER 2021-02-12 12:56 | Emergency (ER) | payer OTHER ==
[2021-02-12] MEDS ORDERED: Iopamidol-370 76% 500 ML 1 ML ONE (13:35)
[2021-02-12] MEDS ORDERED: Morphine 4 MG/ML VIAL ONE (13:50)
[2021-02-12] MEDS ORDERED: Ondansetron PF 4 MG/2 ML Vial ONE (13:50)
[2021-02-12 13:59] LABS: #Eosinphils 0.3 thou/uL (0.0-0.7); #Lymphocytes 1.8 thou/uL (1.20-3.40); #Monocytes 0.5 thou/uL (0.11-0.59); #Neutrophils 3.5 thou/uL (1.40-6.50); %Basophils 0.5 % (0.0-1.0); %Eosinophils 5.3 % (0.0-10.0); %Lymphocytes 29.5 % (21.0-51.0); %Monocytes 7.7 % (0.0-10.0); Hemoglobin 11.5 g/dL (12.0-16.0); Mean Corpuscular HGB CONC 32.7 g/dL (32.0-36.0); Mean Corpuscular Hemoglobin 25.2 pg (27.0-31.0); Mean Platelet Volume 8.4 fL (7.4-10.4); Platelet Count 322 thou/uL (130-400); RBC Distribution Width 14.6 % (11.5-14.5); Red Blood Cell (RBC) Count 4.57 mill/uL (4.20-5.40); White Blood Cell (WBC) Count 6.2 thou/uL (4.8-10.8)
[2021-02-12 14:34] LABS: ALT (SGPT) 12 U/L (8-55); AST (SGOT) 24 U/L (5-34); Albumin 3.2 g/dL (3.5-5.0); Alkaline Phosphatase 64 U/L (40-110); Anion Gap 12 mmol/L (10-20); BUN (Urea Nitrogen) 9 mg/dL (7.0-18.7); Bilirubin, Total 0.2 mg/dL (0.2-1.2); Calc. Creatinine Clearance 0 mL/min (70-130); Calcium 8.9 mg/dL (7.8-10.44); Carbon Dioxide 20 mmol/L (22-29); Chloride 106 mmol/L (98-107); Globulin 4.1 g/dL (2.4-3.5); Glucose 94 mg/dL (70-105); Lipase 14 U/L (8-78); Potassium 5.1 mmol/L (3.5-5.1); Protein, Total 7.3 g/dL (6.0-8.3); Sodium 133 mmol/L (136-145)
[2021-02-12 14:40] LABS: Bilirubin Negative (Negative); Blood, Urine Negative (Negative); Clarity Clear (Clear); Glucose, Urine (Dipstick) Normal (Negative); Ketone, Urine Negative (Negative); Leukocyte Negative Leu/uL (Negative); Nitrite Negative (Negative); Protein, Urine (Dipstick) Negative (Neg-Trace); Specific Gravity, Urine 1.014 (1.002-1.036); Urobilinogen Normal mg/dL (Less than 2); pH, Urine 7.5 (5.0-9.0)
[2021-02-12 14:44] LABS: Pregnancy Test - Urine (BHCG) Negative (Negative); Specific Gravity 1.014 (1.002-1.036)
[2021-02-12 14:45] LABS: Pregu Control Background? CLEAR/WHITE (CLR/WHITE); Pregu Control Bar Appear? YES (CONTROL BAR)
== END 2021-02-12 15:37 | disposition home or self-care (01) ==
LOC: ERS 12:56
DX: M48.061 Spinal stenosis, lumbar region without neurogenic claudication (principal); M47.816 Spondylosis without myelopathy or radiculopathy, lumbar region; D64.9 Anemia, unspecified; R10.33 Periumbilical pain; R10.31 Right lower quadrant pain; G40.909 Epilepsy, unspecified, not intractable, without status epilepticus
CPT/HCPCS: 36415; 74177; 80053; 81003; 81025; 83605; 83690; 85025; 93005; 96374; 96375; J2270; J2405; Q9967

== ENCOUNTER 2021-02-24 14:58 | Outpatient (CLI) | payer OTHER | END 2021-02-24 14:59 | disposition home or self-care (01) | LOC: TBSIIMAG 14:58 | PROVIDERS: ATTEND Family Medicine | DX: M48.061 Spinal stenosis, lumbar region without neurogenic claudication (principal); M43.09 Spondylolysis, multiple sites in spine; M47.817 Spondylosis without myelopathy or radiculopathy, lumbosacral region; M43.17 Spondylolisthesis, lumbosacral region; M48.07 Spinal stenosis, lumbosacral region | CPT/HCPCS: 72148 ==

== ENCOUNTER 2021-03-07 23:05 | Emergency (ER) | payer OTHER ==
[2021-03-07] MEDS ORDERED: Ketorolac Tromethamine 30 MG/ML VIAL ONE (23:36)
== END 2021-03-08 00:48 | disposition home or self-care (01) ==
LOC: ERS 23:05
DX: M54.50 Low back pain, unspecified (principal); M48.00 Spinal stenosis, site unspecified
CPT/HCPCS: 96372; 99283; J1885

== ENCOUNTER 2021-04-10 21:17 | Emergency (ER) | payer OTHER ==
[2021-04-11 13:41] LABS: SARS-CoV-2 PCR by NAA DETECTED (NotDetected)
== END 2021-04-10 23:10 | disposition home or self-care (01) ==
LOC: ERS 21:17
DX: U07.1 COVID-19 (principal); Z79.899 Other long term (current) drug therapy
CPT/HCPCS: 71045; U0003; U0005

== ENCOUNTER 2021-04-21 14:19 | Outpatient (CLI) | payer OTHER ==
[2021-04-21 16:14] LABS: Bilirubin Neg (Negative); Blood, Urine Negative (Negative); Clarity Clear (Clear); Glucose, Urine (Dipstick) Normal (Negative); Ketone, Urine Negative (Negative); Leukocyte Negative (Negative); Nitrite Negative (Negative); Protein, Urine (Dipstick) Negative (Neg-Trace); Specific Gravity, Urine 1.015 (1.002-1.036); Urobilinogen Normal mg/dL (Less than 2)
[2021-04-21 16:52] LABS: Bacteria/HPF 2+ HPF (None Seen); Mucous/LPF Rare LPF (<2+); RBC/HPF 0-3 HPF (0-3); Trichomonas/HPF Rare HPF (None Seen); WBC/HPF 0-3 HPF (0-3)
[2021-04-22 09:13] LABS: SARS-CoV-2 PCR by NAA Not Detected (NotDetected)
== END 2021-04-21 14:20 | disposition home or self-care (01) ==
LOC: LABBT 14:19
PROVIDERS: ATTEND Urology
DX: Z01.812 Encounter for preprocedural laboratory examination (principal); N36.8 Other specified disorders of urethra; Z20.822 Contact with and (suspected) exposure to COVID-19
CPT/HCPCS: 81001; 87086; U0003; U0005

== ENCOUNTER 2021-05-12 12:05 | Outpatient (CLI) | payer OTHER ==
[2021-05-12 12:48] LABS: Hemoglobin 11.6 g/dL (12.0-15.5); Mean Corpuscular HGB CONC 30.9 g/dL (32.0-36.0); Mean Corpuscular Hemoglobin 23.6 pg (27.0-33.0); Mean Corpuscular Volume 76.4 fl (81.6-98.3); Mean Platelet Volume 9.2 fl (7.4-10.4); Platelet Count 303 10x3/uL (150-450); RBC Distribution Width 16.7 % (11.5-14.5); Red Blood Cell (RBC) Count 4.92 10x6/uL (3.90-5.03); White Blood Cell (WBC) Count 7.6 10x3/uL (3.5-10.5)
[2021-05-12 13:07] LABS: PTT 27.4 sec (22.0-33.0); Prothrombin Time 10.9 sec (9.5-12.1)
[2021-05-12 13:08] LABS: Anion Gap 12 mmol/L (10-20); BUN (Urea Nitrogen) 9 mg/dL (7.0-18.7); Calc. Creatinine Clearance 0 mL/min (70-130); Calcium 9.1 mg/dL (7.8-10.44); Carbon Dioxide 24 mmol/L (22-29); Chloride 107 mmol/L (98-107); Glucose 87 mg/dL (70-105); Potassium 4.6 mmol/L (3.5-5.1); Sodium 138 mmol/L (136-145)
== END 2021-05-12 12:06 | disposition home or self-care (01) ==
LOC: LABBT 12:05
PROVIDERS: ATTEND Urology
DX: Z01.812 Encounter for preprocedural laboratory examination (principal); N36.8 Other specified disorders of urethra
CPT/HCPCS: 80048; 85027; 85610; 85730

== ENCOUNTER 2021-05-17 08:51 | Day surgery (SDC) | payer OTHER ==
[2021-05-12 09:49] VITALS: BMI 40.3
[2021-05-17] MEDS ORDERED: EPINEPHrine 1 MG/ML AMP ONE (10:37)
[2021-05-17] MEDS ORDERED: Bupivacaine 0.25% HCL 30 ML VIAL ONE (10:37)
[2021-05-17] MEDS ORDERED: Fentanyl 250 MCG/5 ML VIAL ONE (11:58)
[2021-05-17] MEDS ORDERED: HYDROmorphone 0.5 MG/0.5 ML SYRINGE ONE (11:58)
[2021-05-17] MEDS ORDERED: Midazolam HCl 2 mg/2 ml Vial ONE (11:58)
[2021-05-17] MEDS ORDERED: PHENYLEPHRINE-NS 100 MCG/ML 10 ML SYRINGE ONE (12:15)
[2021-05-17] MEDS ORDERED: ceFAZolin Sodium (SDC) 2 GM/100 ML BAG ONE (12:15)
[2021-05-17] MEDS ORDERED: Lidocaine 1% PF 5 ML VIAL ONE (12:15)
[2021-05-17] MEDS ORDERED: Succinylcholine 200 MG/10 ml SYRINGE FS ONE (12:15)
[2021-05-17] MEDS ORDERED: PROPOFOL 200 MG/20 ML VIAL ONE (12:15)
[2021-05-17] MEDS ORDERED: GLYCOPYRROLATE/PF 0.2 MG/ML VIAL ONE (12:15)
[2021-05-17] MEDS ORDERED: Meperidine HCl/PF 25 MG/ML VIAL ONE (13:33)
[2021-05-17] MEDS ORDERED: HYDROcodone/Acetaminophen 5/325 mg Tablet ONE (15:41)
== END 2021-05-17 16:05 | disposition home or self-care (01) ==
LOC: SDC 08:51
PROVIDERS: ATTEND Urology
PROC: 0UBLXZZ Excision of Vestibular Gland, External Approach (ICD-10-PCS; principal; 2021-05-17)
DX: N36.8 Other specified disorders of urethra (principal); G89.29 Other chronic pain; M54.9 Dorsalgia, unspecified; Z79.899 Other long term (current) drug therapy; Z88.0 Allergy status to penicillin; Z88.5 Allergy status to narcotic agent
CPT/HCPCS: 88304; J0171; J0690; J1170; J2175; J2250; J2704; J3010; J3490; S0020

== ENCOUNTER 2021-08-03 16:55 | Emergency (ER) | payer OTHER ==
[2021-08-03] MEDS ORDERED: Ketorolac Tromethamine 30 MG/ML VIAL ONE (17:36)
[2021-08-03] MEDS ORDERED: Ondansetron PF 4 MG/2 ML Vial ONE (17:36)
[2021-08-03] MEDS ORDERED: Acetaminophen 500 MG TAB ONE (17:36)
[2021-08-03 17:38] LABS: Bilirubin Negative (Negative); Blood, Urine Negative (Negative); Clarity Clear (Clear); Glucose, Urine (Dipstick) Normal (Negative); Ketone, Urine Negative (Negative); Leukocyte Negative Leu/uL (Negative); Nitrite Negative (Negative); Protein, Urine (Dipstick) Negative (Neg-Trace); Specific Gravity, Urine 1.003 (1.002-1.036); Urobilinogen Normal mg/dL (Less than 2); pH, Urine 6.5 (5.0-9.0)
[2021-08-03 17:38] LABS: #Eosinphils 0.4 thou/uL (0.0-0.7); #Lymphocytes 2.3 thou/uL (1.20-3.40); #Monocytes 0.6 thou/uL (0.11-0.59); #Neutrophils 5.3 thou/uL (1.40-6.50); %Basophils 0.2 % (0.0-1.0); %Eosinophils 4.5 % (0.0-10.0); %Lymphocytes 26.5 % (21.0-51.0); %Monocytes 6.5 % (0.0-10.0); %Neutrophils 62.3 % (42.0-75.0); Hemoglobin 11.9 g/dL (12.0-16.0); Mean Corpuscular HGB CONC 33.7 g/dL (32.0-36.0); Mean Corpuscular Hemoglobin 26.4 pg (27.0-31.0); Mean Corpuscular Volume 78.5 fL (78.0-98.0); Mean Platelet Volume 8.6 fL (7.4-10.4); Platelet Count 302 thou/uL (130-400); RBC Distribution Width 15.8 % (11.5-14.5); White Blood Cell (WBC) Count 8.6 thou/uL (4.8-10.8)
[2021-08-03 17:41] LABS: BHCG - Serum Negative (NEGATIVE); Pregs Control Background? CLEAR/WHITE (CLR/WHITE); Pregs Control Bar Appear? YES (CONTROL BAR)
[2021-08-03 17:48] LABS: ALT (SGPT) 12 U/L (8-55); AST (SGOT) 17 U/L (5-34); Albumin 3.6 g/dL (3.5-5.0); Alkaline Phosphatase 66 U/L (40-110); Anion Gap 13 mmol/L (10-20); BUN (Urea Nitrogen) 7 mg/dL (7.0-18.7); Bilirubin, Total 0.3 mg/dL (0.2-1.2); Calc. Creatinine Clearance 0 mL/min (70-130); Carbon Dioxide 20 mmol/L (22-29); Chloride 106 mmol/L (98-107); Glucose 81 mg/dL (70-105); Lipase 13 U/L (8-78); Potassium 4.4 mmol/L (3.5-5.1); Protein, Total 7.6 g/dL (6.0-8.3); Sodium 135 mmol/L (136-145)
[2021-08-03] MEDS ORDERED: Dicyclomine 20 MG/2 ML VIAL ONE (18:44)
== END 2021-08-03 19:02 | disposition home or self-care (01) ==
LOC: ERS 16:55
DX: R10.30 Lower abdominal pain, unspecified (principal); G40.909 Epilepsy, unspecified, not intractable, without status epilepticus; Z79.899 Other long term (current) drug therapy
CPT/HCPCS: 74176; 80053; 81003; 83690; 84703; 85025; 96372; 96374; 96375; J0500; J1885; J2405

== ENCOUNTER 2021-10-02 23:02 | Emergency (ER) | payer OTHER ==
[2021-10-03 00:09] LABS: Pregnancy Test - Urine (BHCG) Negative (Negative); Pregu Control Background? CLEAR/WHITE (CLR/WHITE); Pregu Control Bar Appear? YES (CONTROL BAR)
[2021-10-03 00:10] LABS: Bilirubin Negative (Negative); Blood, Urine Negative (Negative); Clarity Clear (Clear); Glucose, Urine (Dipstick) Normal (Negative); Ketone, Urine Negative (Negative); Leukocyte Negative Leu/uL (Negative); Nitrite Negative (Negative); Protein, Urine (Dipstick) Negative (Neg-Trace); Specific Gravity, Urine 1.009 (1.002-1.036); Urobilinogen Normal mg/dL (Less than 2); pH, Urine 6.5 (5.0-9.0)
[2021-10-03 00:11] LABS: Specific Gravity 1.009 (1.002-1.036)
== END 2021-10-03 01:42 | disposition home or self-care (01) ==
LOC: ERS 23:02
DX: B02.9 Zoster without complications (principal); G40.909 Epilepsy, unspecified, not intractable, without status epilepticus
CPT/HCPCS: 81003; 81025; 99284

== ENCOUNTER 2021-10-30 10:04 | Emergency (ER) | payer OTHER ==
[2021-10-30] MEDS ORDERED: Ibuprofen 200 MG TAB ONE (11:44)
[2021-10-30] MEDS ORDERED: Acetaminophen 500 MG TAB ONE (11:44)
== END 2021-10-30 11:48 | disposition home or self-care (01) ==
LOC: ERS 10:04
DX: M54.2 Cervicalgia (principal); G40.909 Epilepsy, unspecified, not intractable, without status epilepticus; W01.10XA Fall on same level from slipping, tripping and stumbling with subsequent striking against unspecified object, initial encounter
CPT/HCPCS: 99283

== ENCOUNTER 2022-02-20 15:03 | Emergency (ER) | payer OTHER ==
[2022-02-20 17:39] LABS: #Eosinphils 0.3 thou/uL (0.0-0.7); #Lymphocytes 2.2 thou/uL (1.20-3.40); #Monocytes 0.3 thou/uL (0.11-0.59); #Neutrophils 4.6 thou/uL (1.40-6.50); %Eosinophils 4.3 % (0.0-10.0); %Lymphocytes 29.5 % (21.0-51.0); %Monocytes 4.2 % (0.0-10.0); %Neutrophils 61.9 % (42.0-75.0); Hemoglobin 11.9 g/dL (12.0-16.0); Mean Corpuscular HGB CONC 32.7 g/dL (32.0-36.0); Mean Corpuscular Hemoglobin 25.4 pg (27.0-31.0); Mean Corpuscular Volume 77.7 fl (78.0-98.0); Mean Platelet Volume 8.2 fL (7.4-10.4); Platelet Count 324 10x3/uL (130-400); Red Blood Cell (RBC) Count 4.68 mill/uL (4.20-5.40); White Blood Cell (WBC) Count 7.4 10x3/uL (4.8-10.8)
[2022-02-20 18:05] LABS: ALT (SGPT) 10 U/L (8-55); AST (SGOT) 13 U/L (5-34); Albumin 3.7 g/dL (3.5-5.0); Alkaline Phosphatase 74 U/L (40-110); Anion Gap 9 mmol/L (10-20); BUN (Urea Nitrogen) 13 mg/dL (7.0-18.7); Bilirubin, Total 0.3 mg/dL (0.2-1.2); Calc. Creatinine Clearance 0 mL/min (70-130); Calcium 9.2 mg/dL (7.8-10.44); Carbon Dioxide 22 mmol/L (22-29); Chloride 108 mmol/L (98-107); Estimated GFR 97; Globulin 3.5 g/dL (2.4-3.5); Glucose 89 mg/dL (70-105); Lipase 12 U/L (8-78); Potassium 4.4 mmol/L (3.5-5.1); Protein, Total 7.2 g/dL (6.0-8.3); Sodium 135 mmol/L (136-145)
== END 2022-02-20 20:20 | disposition home or self-care (01) ==
LOC: ERS 15:03
DX: R07.9 Chest pain, unspecified (principal); G40.909 Epilepsy, unspecified, not intractable, without status epilepticus
CPT/HCPCS: 36415; 71045; 80053; 83690; 83880; 84484; 85025; 93005

== ENCOUNTER 2022-11-12 21:27 | Emergency (ER) | payer OTHER ==
[2022-11-12] MEDS ORDERED: Dexamethasone 10 MG/ML VIAL ONE (21:52)
== END 2022-11-12 22:42 | disposition home or self-care (01) ==
LOC: ERS 21:27
DX: M54.50 Low back pain, unspecified (principal)
CPT/HCPCS: 99283; J1100

== ENCOUNTER 2023-03-09 19:39 | Emergency (ER) | payer OTHER ==
[2023-03-09 20:02] LABS: #Eosinphils 0.2 thou/uL (0.0-0.7); #Monocytes 0.5 thou/uL (0.11-0.59); #Neutrophils 4.5 thou/uL (1.40-6.50); %Basophils 0.5 % (0.0-1.0); %Eosinophils 3.1 % (0.0-10.0); %Lymphocytes 28.1 % (21.0-51.0); %Monocytes 6.5 % (0.0-10.0); %Neutrophils 61.4 % (42.0-75.0); Hematocrit 34.3 % (36.0-47.0); Mean Corpuscular HGB CONC 32.1 g/dL (32.0-36.0); Mean Corpuscular Hemoglobin 24.4 pg (27.0-31.0); Mean Corpuscular Volume 76.2 fl (78.0-98.0); Mean Platelet Volume 9.4 fL (7.4-10.4); Platelet Count 338 10x3/uL (130-400); RBC Distribution Width 16.3 % (11.5-14.5); White Blood Cell (WBC) Count 7.4 10x3/uL (4.8-10.8)
[2023-03-09 20:27] LABS: ALT (SGPT) 9 U/L (8-55); AST (SGOT) 13 U/L (5-34); Albumin 3.5 g/dL (3.5-5.0); Alkaline Phosphatase 64 U/L (40-110); Anion Gap 13 mmol/L (10-20); BUN (Urea Nitrogen) 9 mg/dL (7.0-18.7); Bilirubin, Total 0.2 mg/dL (0.2-1.2); Calc. Creatinine Clearance 0 mL/min (70-130); Calcium 8.9 mg/dL (7.8-10.44); Carbon Dioxide 19 mmol/L (22-29); Chloride 109 mmol/L (98-107); Estimated GFR 99; Globulin 3.1 g/dL (2.4-3.5); Glucose 106 mg/dL (70-105); Lipase 13 U/L (8-78); Protein, Total 6.6 g/dL (6.0-8.3); Sodium 137 mmol/L (136-145)
[2023-03-09 20:30] LABS: Troponin I 0.018 ng/mL (< 0.028)
[2023-03-09] MEDS ORDERED: Ketorolac Tromethamine 30 MG/ML VIAL ONE (21:43)
== END 2023-03-09 21:58 | disposition home or self-care (01) ==
LOC: ERS 19:39
DX: R07.2 Precordial pain (principal)
CPT/HCPCS: 36415; 71045; 80053; 83690; 84484; 85025; 93005; 96372; J1885

== ENCOUNTER 2023-09-17 15:28 | Emergency (ER) | payer OTHER | END 2023-09-17 16:35 | disposition home or self-care (01) | LOC: ERS 15:28 | DX: H66.92 Otitis media, unspecified, left ear (principal); K08.89 Other specified disorders of teeth and supporting structures | CPT/HCPCS: 99282 ==